=== PATIENT | female | born 1945 | race Caucasian/White ===

== ENCOUNTER 2018-01-19 09:33 | Emergency (ER) | payer MEDICARE ==
[2018-01-19 10:14] LABS: #Basophils 0.1 thou/uL (0.0-0.2); #Eosinphils 0.2 thou/uL (0.0-0.7); #Lymphocytes 2.8 thou/uL (1.20-3.40); #Monocytes 0.8 thou/uL (0.11-0.59); #Neutrophils 5.7 thou/uL (1.40-6.50); %Basophils 0.9 % (0.0-1.0); %Eosinophils 2.1 % (0.0-10.0); %Lymphocytes 29.1 % (21.0-51.0); %Monocytes 8.1 % (0.0-10.0); %Neutrophils 59.8 % (42.0-75.0); Hemoglobin 10.5 g/dL (12.0-16.0); Mean Corpuscular HGB CONC 32.9 g/dL (32.0-36.0); Mean Corpuscular Hemoglobin 31.1 pg (27.0-31.0); Mean Corpuscular Volume 94.5 fl (81.0-99.0); Mean Platelet Volume 7.5 fL (7.4-10.4); Platelet Count 295 thou/uL (130-400); RBC Distribution Width 12.4 % (11.5-14.5); Red Blood Cell (RBC) Count 3.38 mill/uL (4.20-5.40); White Blood Cell (WBC) Count 9.5 thou/uL (4.8-10.8)
[2018-01-19 10:29] LABS: ALT (SGPT) 16 U/L (8-55); AST (SGOT) 22 U/L (5-34); Albumin 4.1 g/dL (3.4-4.8); Alkaline Phosphatase 88 U/L (40-150); Anion Gap 13 mmol/L (10-20); BUN (Urea Nitrogen) 30 mg/dL (9.8-20.1); Bilirubin, Total 0.4 mg/dL (0.2-1.2); CK (CPK) 107 U/L (29-168); Calc. Creatinine Clearance 0 mL/min (70-130); Calcium 9.3 mg/dL (7.8-10.44); Carbon Dioxide 21 mmol/L (23-31); Chloride 110 mmol/L (98-107); Estimated GFR-MDRD 29; Glucose 158 mg/dL (80-115); Potassium 4.9 mmol/L (3.5-5.1); Protein, Total 7.1 g/dL (6.0-8.3); Sodium 139 mmol/L (136-145)
[2018-01-19 10:34] LABS: CKMB 1.8 ng/mL (0-6.6); Troponin I Less than 0.010 ng/mL (< 0.028)
[2018-01-19] MEDS ORDERED: Acetaminophen 325 MG TAB ONE (10:35)
[2018-01-19] MEDS ORDERED: Lorazepam 2 MG/ML VIAL ONE (11:14)
--- NOTE | 2018-01-19 11:22 | RAD ---
PORTABLE AP CHEST XRAY: DATE: 01/19/18. HISTORY: Dyspnea. Right leg pain with pain radiating down buttocks into the right leg. COMPARISON: 06/21/16. FINDINGS: Cardiac silhouette is magnified by projection. Pulmonary vasculature is within normal limits. There is a stable area of linear scarring within the right mid lung zone. There is minimal linear atelecta sis of the left lung base. The lungs are otherwise clear. Bon Wier screws again overlie the humeral h dalia bilaterally. Remote right clavicle fracture is seen. No other interval change. IMPRESSION: No acute cardiopulmonary process. POS: [facility] [place]
[2018-01-19] MEDS ORDERED: Fentanyl 100 MCG/2 ML VIAL SLOW IVP SCH (11:30)
[2018-01-19] MEDS ORDERED: Fentanyl 100 MCG/2 ML VIAL ONE (11:42)
[2018-01-19] MEDS ORDERED: ISOVUE-370 76%-LOCM 1 ML ONE (13:25)
--- NOTE | 2018-01-19 13:40 | CT ---
CT ANGIOGRAM THORAX WITH IV CONTRAST AND 3D RECONSTRUCTIONS: DATE: 01/19/18. HISTORY: Elevated D-dimer. The patient has had right lower extremity pain for the last week. The patient als o reports dyspnea and shortness of breath after walking across the street. Nausea. Questionable his tory of prior DVT. FINDINGS: No filling defects are seen in the pulmonary arteries to suggest a pulmonary embolus. Prominent vascular calcifications are seen in the coronary arteries as well as involving of the thora cic aorta. The thoracic aorta is normal in caliber without evidence of an aortic dissection. There is dependent atelectatic bilaterally. No discrete pulmonary nodule or mass is seen, and no ple ural effusion is identified. There is no evidence of lymphadenopathy. Post cholecystectomy changes are seen in the visualized upper abdomen. Subcentimeter too small to ch aracterize hypodense lesion is seen in the superior pole left kidney. Osseous structures are intact. There is evidence of remote right clavicle fracture with anchor screw s overlying each humeral head, and there is partial visualization of postsurgical changes related to posterior fusion of the lumbar spine noted on the manager pe image. IMPRESSION: 1. No CT evidence of a pulmonary embolus. 2. Prominent atherosclerotic vascular calcifications. 3. Post-cholecystectomy changes. 4. Subcentimeter too small to characterize hypodense lesion superior pole left kidney. POS: [facility]
== END 2018-01-19 13:30 | disposition home or self-care (01) ==
LOC: ERS 09:33
DX: M54.31 Sciatica, right side (principal); R06.00 Dyspnea, unspecified; I25.10 Atherosclerotic heart disease of native coronary artery without angina pectoris; E03.9 Hypothyroidism, unspecified; E78.5 Hyperlipidemia, unspecified; I10 Essential (primary) hypertension; J44.9 Chronic obstructive pulmonary disease, unspecified; Z87.891 Personal history of nicotine dependence; Z79.899 Other long term (current) drug therapy
CPT/HCPCS: 36415; 71045; 71275; 80053; 82550; 82553; 83880; 84484; 85025; 85379; 93005; 96361; 96374; 96375; J2060; J3010

== ENCOUNTER 2018-02-05 17:38 | Observation (INO) | payer MEDICARE ==
[2018-02-05 18:19] LABS: #Eosinphils 0.1 thou/uL (0.0-0.7); #Monocytes 1.5 thou/uL (0.11-0.59); #Neutrophils 10.8 thou/uL (1.40-6.50); %Basophils 0.2 % (0.0-1.0); %Eosinophils 0.5 % (0.0-10.0); %Lymphocytes 24.4 % (21.0-51.0); %Neutrophils 65.9 % (42.0-75.0); Hemoglobin 9.7 g/dL (12.0-16.0); Mean Corpuscular HGB CONC 32.8 g/dL (32.0-36.0); Mean Corpuscular Volume 94.5 fl (81.0-99.0); Mean Platelet Volume 7.3 fL (7.4-10.4); Platelet Count 234 thou/uL (130-400); RBC Distribution Width 12.9 % (11.5-14.5); Red Blood Cell (RBC) Count 3.14 mill/uL (4.20-5.40); White Blood Cell (WBC) Count 16.4 thou/uL (4.8-10.8)
[2018-02-05 18:40] LABS: ALT (SGPT) 32 U/L (8-55); AST (SGOT) 23 U/L (5-34); Albumin 3.8 g/dL (3.4-4.8); Alkaline Phosphatase 72 U/L (40-150); Anion Gap 11 mmol/L (10-20); BUN (Urea Nitrogen) 47 mg/dL (9.8-20.1); Bilirubin, Total 0.3 mg/dL (0.2-1.2); Calc. Creatinine Clearance 0 mL/min (70-130); Calcium 9.1 mg/dL (7.8-10.44); Carbon Dioxide 24 mmol/L (23-31); Chloride 109 mmol/L (98-107); Estimated GFR-MDRD 40; Globulin 2.7 g/dL (2.4-3.5); Glucose 163 mg/dL (80-115); Potassium 4.9 mmol/L (3.5-5.1); Protein, Total 6.5 g/dL (6.0-8.3); Sodium 139 mmol/L (136-145)
--- NOTE | 2018-02-05 19:33 | RAD ---
FOUR VIEWS OF THE RIGHT KNEE 02/05/18 COMPARISON: None. HISTORY: Right knee pain after fall. FINDINGS: Four views of the right knee shows no evidence of acute fracture or dislocation. No knee effusion is seen. No degenerative changes are present. IMPRESSION: Unremarkable exam. POS: [facility]
[2018-02-05 19:37] LABS: CKMB 2.9 ng/mL (0-6.6); Troponin I Less than 0.010 ng/mL (< 0.028)
--- NOTE | 2018-02-05 20:06 | CT ---
CT OF THE FACE WITHOUT CONTRAST 02/05/18 COMPARISON: None. HISTORY: Multiple falling episodes. Memory loss. Facial trauma. TECHNIQUE: Multiple contiguous axial images are obtained in a CT of the face without contrast. Sagittal and jorge nal reformats were performed. FINDINGS: The patient is edentulous. The mandible is unremarkable. The temporomandibular joints are symmetric. No facial fractures are appreciated. The globes and retrobulbar soft tissues are unremarkable. No foc al facial soft tissue swelling is seen. There is a small amount of fluid in the left sphenoid sinus. The other paranasal sinuses are well aer ated. The patient has had prior right mastoid surgery. IMPRESSION: No evidence of facial fracture. POS: [facility]
[2018-02-05] MEDS ORDERED: Adacel (T-DAP) 0.5 ML VIAL ONE (20:22)
--- NOTE | 2018-02-05 20:32 | RAD ---
SINGLE VIEW OF THE CHEST 02/05/18 COMPARISON: 01/19/18 HISTORY: Recent falls with chest trauma. FINDINGS: Single view of the chest shows a normal sized cardiomediastinal silhouette with atherosclerotic calci fications in the aorta. There is no evidence of consolidation, mass or pleural effusion. Bone anchors are seen in the right humerus from prior right shoulder surgery. IMPRESSION: No evidence of acute cardiopulmonary disease. POS: [facility]
--- NOTE | 2018-02-05 20:36 | RAD ---
THREE VIEWS OF THE RIGHT SHOULDER: 02/05/18 COMPARISON: None. HISTORY: Right shoulder pain after falling multiple times. FINDINGS: Three views of the right shoulder shows no evidence of acute fracture or dislocation. Bone anchors ar e seen in the right humerus from prior right shoulder surgery. There is a moderate osteophyte in the glenohumeral joint. IMPRESSION: Moderate right shoulder osteoarthritis without acute osseous abnormality. POS: [facility]
--- NOTE | 2018-02-05 20:43 | CT ---
CT OF THE BRAIN WITHOUT CONTRAST 02/05/18 COMPARISON: None. HISTORY: Altered mental status and multiple falls. COMPARISON: 06/21/16 TECHNIQUE: Multiple contiguous axial images were obtained in a CT of the brain without contrast. FINDINGS: There are a few scattered hypodensities in the subcortical and periventricular white matter, likely s econdary to small vessel ischemic disease. No large confluent infarction is seen. There is no evidenc e of hydrocephalus, intracranial hemorrhage, or extra-axial fluid collections. The calvarium and overlying soft tissues are unremarkable. The visualized paranasal sinuses are well aerated. The patient has had prior right mastoid surgery. IMPRESSION: No evidence of acute intracranial abnormality. POS: [facility]
--- NOTE | 2018-02-05 20:45 | RAD ---
THREE VIEWS OF THE RIGHT FOOT 02/05/18 COMPARISON: None. HISTORY: Recent falls with right foot pain. FINDINGS: Three views of the right foot shows irregularity of the proximal phalanx of the fourth toe which coul d represent an acute or chronic fracture. No other fracture or dislocation are seen. No soft tissue s welling is seen. Mild degenerative changes are seen in the mid foot. IMPRESSION: Possible remote versus acute fracture of the proximal phalanx of the fourth toe. Correlate with point tenderness in this location. POS: [facility]
--- NOTE | 2018-02-05 20:48 | CT ---
CT OF THE CERVICAL SPINE WITHOUT CONTRAST 02/05/18 COMPARISON: None. HISTORY: Multiple falls with neck pain. TECHNIQUE: Multiple contiguous axial images were obtained in a CT of the cervical spine without contrast. Sagitt al and coronal reformats were performed. FINDINGS: There are moderate degenerative changes throughout the cervical spine. the vertebral bodies demonstra te normal height and alignment without acute fracture or subluxation. No prevertebral soft tissue swe lling is seen. The posterior facets are well aligned. Normal alignment of the skull base with the cervical spine is seen. IMPRESSION: Degenerative changes of the cervical spine without acute osseous abnormality. POS: [facility]
[2018-02-05 21:09] LABS: Bilirubin Negative (Negative); Blood, Urine Small (Negative); Clarity CLEAR (Clear); Glucose, Urine (Dipstick) Negative (Negative); Leukocyte Small (Negative); Nitrite Negative (Negative); Protein, Urine (Dipstick) Trace mg/dL (Neg-Trace); Specific Gravity, Urine 1.018 (1.002-1.036); Urobilinogen 0.2 mg/dL (0.2-1.0)
[2018-02-05 21:11] LABS: Bacteria/HPF None Seen HPF (None Seen); Hyaline Casts/LPF 0-3 HYALINE CAST LPF (0-3 Hyaline); Pathc Cast-AUWi Flag 0.29 (0-2.49); Squamous Epithelial None Seen HPF (0-3); WBC/HPF 0-3 HPF (0-3)
[2018-02-05] MEDS ORDERED: Acetaminophen 500 MG TAB ONE (21:22)
[2018-02-05] MEDS ORDERED: Ketorolac Tromethamine 30 MG/ML VIAL ONE (22:17)
[2018-02-05 22:55] LABS: Troponin I Less than 0.010 ng/mL (< 0.028)
[2018-02-05] MEDS ORDERED: Acetaminophen 325 MG TAB PO PRN (23:59)
[2018-02-05] MEDS ORDERED: Ondansetron HCl/PF 4 MG/2 ML Vial IVP PRN (23:59)
[2018-02-05] MEDS ORDERED: Ondansetron ODT 4 MG TAB SL PRN (23:59)
[2018-02-06 00:08] VITALS: BMI 31.6
[2018-02-06 01:46] LABS: Troponin I Less than 0.010 ng/mL (< 0.028)
[2018-02-06] MEDS ORDERED: HYDROcodone/Acetaminophen 10/325 mg Tablet PO PRN (02:06)
[2018-02-06] MEDS: Sodium Chloride 0.9% 1,000 ML IV SCH (10:33)
--- NOTE | 2018-02-06 11:48 | HP ---
DATE OF ADMISSION: 02/06/2018 CHIEF COMPLAINT: Falls. HISTORY OF PRESENT ILLNESS: This is a 72-year-old white female. She lives on her own independently, has a home health through [employer]. She has been falling frequently for the past couple of months. The last fall was a month ago where she had a rotator cuff injury and was seen by Orthopedics and joann daisy is on a shoulder splint at this time. She is seen in the room along with her neighbors who ar e friends who came to visit her. Patient had bruises on the left eye and also multiple bruises on th e lower extremities and has right shoe splint. She denies having any chest pain, no nausea, no vomit ing. Denies having any dizziness. She does not remember the way she fell yesterday. She said she w as seen by [facility] nurse who came to visit her and she advised the patient to go to the ER as she n oticed that the patient has been falling frequently. When patient presented to the ER, she had multi ple x-rays of the knee, x-ray of the hand, x-ray of the shoulder, x-ray of the cervical neck, CT of t he head, everything was unremarkable except for the x-ray of the right foot showing an evidence of pr oximal phalanx of the fourth toe, also had remote fracture, but nondisplaced. Patient denies having any diarrhea or constipation. She is on Lasix at home and she is found to be dehydrated at this time . She does have a history of left carotid artery surgery in the past and she did not follow up with her Cardiology or her PCP recently. PAST MEDICAL HISTORY: Hypothyroidism, peripheral vascular disease, coronary artery disease, hypercho lesterolemia, hypertension, peptic ulcer disease, and cerebrovascular disease. PAST SURGICAL HISTORY: Has a right rotator cuff repair, spinal surgery in the past, hysterectomy, le ft carotid endarterectomy and stent placement to her left common iliac. ALLERGIES: PENICILLIN. SOCIAL HISTORY: Patient is not a nonsmoker. No history of alcohol, no history of illicit drug use. She lives independently. FAMILY HISTORY: No significant family history of coronary artery disease. Family history has been r kianaweosmany. ALLERGIES: PENICILLIN. HOME MEDICATIONS: 1. Cider vinegar 600 mg capsule, takes 1 tablet p.o. b.i.d. 2. Hydrocodone 1 tablet p.o. b.i.d. 3. Tylenol PM, she takes 2 tablets p.o. at bedtime. 4. Lasix 20 mg p.o. at bedtime. 5. Atorvastatin 20 mg p.o. daily. 6. Biotin. 7. Calcium carbonate. 8. Levothyroxine 112 mcg p.o. daily. 9. Losartan 100 mg p.o. daily. 10. Potassium 10 mEq p.o. daily. REVIEW OF SYSTEMS: All other systems are reviewed with the patient thoroughly and found to be negati ve. The following complete review of systems was negative, unless otherwise mentioned in the HPI or below: Constitutional: Weight loss or gain, sense of well-being, ability to conduct usual activities, exerc ise tolerance. Skin/Breast: Rash, itching, changes in hair growth or loss, nail changes, breast lumps, tenderness, swelling, nipple discharge. Eyes: Vision, double vision, tearing, blind spots, pain. ENT/Mouth: Headaches (location, time of onset, duration, precipitating factors), vertigo, lightheadedness, injury. Vision, double vision, tearing, blind spots, pain, nose b leeding, colds, obstruction, discharge, dental difficulties, gingival bleeding, dentures, neck stiffn ess, pain, tenderness, masses in thyroid or other areas Cardiovascular: Precordial pain, substernal distress, palpitations, syncope, dyspnea on exertion, or thopnea, nocturnal paroxysmal dyspnea, edema, cyanosis, hypertension, heart murmurs, varicosities, ph lebitis, claudication. Respiratory: Pain, shortness of breath, wheezing, stridor, cough, hemoptysis, fever or night sweats Gastrointestinal: Poor appetite, dysphagia, indigestion, abdominal pain, heartburn, eructation, naus ea, vomiting, hematemesis, jaundice, constipation, or diarrhea, abnormal stools (roger-colored, tarry, bloody, greasy, foul smelling), flatulence, hemorrhoids, recent changes in bowel habits. Genitourinary: Urgency, frequency, dysuria, nocturia, hematuria, polyuria, oliguria, unusual (or titus nge in) color of urine, stones, hesitancy, change in size of stream, dribbling, acute retention or in continence, libido, potency. Musculoskeletal: Pain, swelling, redness or heat of muscles or joints, limitation, of motion, muscular weakness, atrophy, cramps. Neurologic/Psychiatric: Convulsions, paralyses, tremor, incoordination, parasthesias, difficulties w ith memory of speech, sensory or motor disturbances, or muscular coordination (ataxia, tremor), emoti onal problems, anxiety, depression, previous psychiatric care, unusual perceptions, hallucinations. Allergy/Immunologic: Skin rash, anemia, bleeding tendency, polydipsia, polyuria, intolerance to heat or cold. PHYSICAL EXAMINATION: VITAL SIGNS: Blood pressure 140/96, heart rate is 68, respiratory rate is 18, saturation 98% on room air. GENERAL: The patient is moderately built and moderately nourished. She does not appear to be in acu te distress at this time. She is alert and oriented x3. HEENT: Trauma to the left side of the eye with the bruise noted periorbitally. Vision is normal. V isual acuity is normal. Extraocular movements are normal. Oral mucosa is pink and moist. CARDIOVASCULAR: S1, S2 normal. No murmurs, rubs or gallops. NECK: No thyromegaly. No cervical tenderness. No lymphadenopathy was noted. LUNGS: Bilateral air entry was equal. No wheezing, no crackles. ABDOMEN: Soft, nontender, no guarding, no rebound tenderness. Bowel sounds normal. MUSCULOSKELETAL: The patient has right lower extremity bruises on the lal of the tibia and right fo ot splint is noted. EXTREMITIES: No calf tenderness. No joint tenderness, no joint swelling. SKIN: No erythema, bruising, but noted as explained above. PSYCHIATRIC: No signs of suicidal ideations. No signs of kwesi. LABORATORY DATA: WBC 16.4, hemoglobin is 9.7, hematocrit is 29.7, platelets are 234, neutrophils 10. 8. Sodium is 139, potassium 4.9, chloride is 109. Blood sugar is 163. Lactic acid 1.5. Her tropon ins were normal. ASSESSMENT: 1. Acute syncope. 2. Acute leukocytosis. 3. Moderate to severe dehydration. 4. Acute on chronic kidney disease. 5. History of cerebrovascular disease. 6. Right fourth toe proximal phalanx fracture. 7. Anemia of chronic disease. PLAN: 1. Plan is to closely monitor this patient. We will do a thorough evaluation of her syncope. The p atient has been falling frequently. She is on Lasix which does cause dehydration which is evident ba sed on the labs at this time. We will hold off on the Lasix. 2. We will do a carotid artery evaluation. The left carotid artery had endarterectomy more than 2 y ears ago. Need to look for any evidence of plaque formation or any stenosis. We will do a 2D echo t o look for any evidence of cardiogenic reasons for the falls. 3. History of hypertension. We will continue the patient on home medications. The patient is on lo sartan and Lasix. We will hold the Lasix as described above. 4. As patient has evidence of elevated white count, no source of infection was noted and UA was norm al. Chest x-ray has no pneumonia, no signs of any cellulitis on the skin. We will closely monitor. Most likely this could be part of the dehydration. Lactic acid was normal, so no signs of infection at this time. I would not start any antibiotics. 5. We will do a PT and OT evaluation to see if the patient would qualify for inpatient rehab because of the multiple falls. 6. As patient has anemia, no evidence of any overt bleeding or GI bleeding was noted. We will check stool sample for any occult blood. 7. Deep venous thrombosis prophylaxis, Lovenox. I spent 75 minutes with this patient.
--- NOTE | 2018-02-06 12:52 | ULT ---
BILATERAL CAROTID DUPLEX ULTRASOUND INCLUDING COLOR AND SPECTRAL DOPPLER IMAGING: HISTORY: A 72-year-old female with a history of syncope and dizziness. Visual plaque noted in proximal ICAs bilaterally. PSV right ICA 96 cm/s, EDV 17 cm/s, ICA/CCA ratio 1.1. PSV left ICA 161 cm/s, EDV 45 cm/s, SALMA/CCA ratio 1.6. Vertebral flow is antegrade. IMPRESSION: Moderate (50-69%) stenosis of the right internal carotid artery. Bilateral proximal internal carotid artery visualized plaque, evidence for atherosclerotic carotid artery vascular disease. POS: [facility]
[2018-02-06] MEDS: HYDROcodone/Acetaminophen 10/325 mg Tablet PO PRN ×2 (13:12→21:24)
--- NOTE | 2018-02-06 19:22 | RAD ---
TWO VIEWS OF THE LEFT FOOT: 02/06/18 COMPARISON: None. HISTORY: Left foot pain. FINDINGS: Two views of the left foot shows a spiral fracture or the proximal phalanx of the second toe. No othe r fractures are seen. Lucency in the distal aspect of the proximal phalanx of the great toe likely re presents degenerative change. IMPRESSION: Acute fracture of the proximal phalanx of the second toe. POS: [facility]
[2018-02-06] MEDS ORDERED: [UNRECOGNIZED DRUG - OTHER] PO SCH (21:00)
[2018-02-06] MEDS ORDERED: Atorvastatin Calcium 20 MG TAB PO SCH (21:00)
[2018-02-06] MEDS ORDERED: Famotidine 20 MG TAB PO SCH ×2 (21:00)
[2018-02-06] MEDS ORDERED: CALCIUM CARBONATE PO SCH (21:00)
[2018-02-06] MEDS ORDERED: VITAMIN D3 PO SCH (21:00)
[2018-02-06] MEDS ORDERED: Calcium Carbonate + Vit D 1 TAB PO SCH (21:00)
[2018-02-06] MEDS: Docusate 100 MG CAP PO SCH (21:24)
[2018-02-07] MEDS: HYDROcodone/Acetaminophen 10/325 mg Tablet PO PRN ×2 (03:06→11:04)
[2018-02-07] MEDS: Sodium Chloride 0.9% 1,000 ML IV SCH ×2 (03:09→17:03)
[2018-02-07 04:50] LABS: #Eosinphils 0.1 thou/uL (0.0-0.7); #Lymphocytes 2.3 thou/uL (1.20-3.40); #Neutrophils 6.5 thou/uL (1.40-6.50); %Basophils 0.2 % (0.0-1.0); %Eosinophils 1.2 % (0.0-10.0); %Lymphocytes 23.1 % (21.0-51.0); %Monocytes 9.9 % (0.0-10.0); %Neutrophils 65.6 % (42.0-75.0); Hemoglobin 9.5 g/dL (12.0-16.0); Mean Corpuscular HGB CONC 32.6 g/dL (32.0-36.0); Mean Corpuscular Hemoglobin 30.7 pg (27.0-31.0); Mean Corpuscular Volume 94.3 fl (81.0-99.0); Mean Platelet Volume 7.4 fL (7.4-10.4); Platelet Count 202 thou/uL (130-400); RBC Distribution Width 12.8 % (11.5-14.5); Red Blood Cell (RBC) Count 3.08 mill/uL (4.20-5.40); White Blood Cell (WBC) Count 9.9 thou/uL (4.8-10.8)
[2018-02-07 05:00] LABS: Anion Gap 10 mmol/L (10-20); BUN (Urea Nitrogen) 40 mg/dL (9.8-20.1); Calc. Creatinine Clearance 59 mL/min (70-130); Calcium 9.1 mg/dL (7.8-10.44); Carbon Dioxide 25 mmol/L (23-31); Chloride 110 mmol/L (98-107); Estimated GFR-MDRD 48; Glucose 121 mg/dL (80-115); Potassium 5.2 mmol/L (3.5-5.1); Sodium 140 mmol/L (136-145)
[2018-02-07] MEDS ORDERED: Levothyroxine Sodium 112 MCG TAB PO SCH (06:00)
[2018-02-07] MEDS ORDERED: Enoxaparin Sodium 40 MG/0.4 ML SYRINGE SC SCH (09:00)
[2018-02-07] MEDS ORDERED: Potassium Chloride 10 MEQ TAB PO SCH (09:00)
[2018-02-07] MEDS ORDERED: Non-Formulary Item 1 EACH (Losartan Potassium [Losartan Potassium] 100 MG) PO SCH (09:00)
[2018-02-07] MEDS ORDERED: Non-Formulary Item 1 EACH (Biotin [Biotin] 5,000 MCG) PO SCH (09:00)
[2018-02-07] MEDS ORDERED: Non-Formulary Item 1 EACH (Cholecalciferol (Vitamin D3) [Vitamin D3] 5,000 UNIT) PO SCH (09:00)
[2018-02-07] MEDS ORDERED: Losartan 25 MG TAB PO SCH (09:00)
[2018-02-07] MEDS: Docusate 100 MG CAP PO SCH (09:10)
[2018-02-07 10:55] LABS: Cardiac Risk 3.7 (Less than 4.5)
--- NOTE | 2018-02-07 13:01 | CON ---
DATE OF CONSULTATION: 02/07/2018 HISTORY OF PRESENT ILLNESS: This is a 72-year-old female with several falls in the last month by her account. She states that she is uncertain as to the cause, does not know if she is passing out or t ripping. In any event, workup has included EKG suggesting an inferior DC and possible left ventricul ar hypertrophy. She had a carotid ultrasound demonstrating a 50%-69% left internal carotid artery st enosis. Otherwise, no source for her passing or tripping or falling spells has been elucidated. PAST MEDICAL HISTORY: Includes hypertension, dyslipidemia, and hypothyroidism. She is generally fol lowed by Dr. Yessi Caceres for these problems. PAST SURGICAL HISTORY: Includes a left carotid endarterectomy, previous stent in her left common saba ac, previous hysterectomy and rotator cuff repair. She has had 2 back surgeries and a cholecystectom y. SOCIAL HISTORY: She was a smoker in the past, but not presently. She lives at home alone. MEDICATIONS: Losartan, levothyroxine, atorvastatin, Lasix, hydrocodone. ALLERGIES: PENICILLIN. PHYSICAL EXAMINATION: GENERAL: Alert, cooperative, somewhat disheveled lady, very pleasant. NECK: Healed scar on the left with no bruits. LUNGS: Clear to auscultation. CARDIAC: Occasional ectopic beat with a very soft systolic murmur. ABDOMEN: Soft, nontender. EXTREMITIES: She has palpable pedal pulse in both feet with an IV in her left foot and palpable radi al artery pulses. PLAN: Plan at this time, no further evaluation needs to be undertaken in regards to her carotid francia ry disease and I will follow her up as an outpatient. There may be some reason to consider an echoca rdiogram given her syncopal episodes as I cannot see that one has been done in the recent past.
[2018-02-07 15:36] VITALS: BP 135/68; TEMP 97.9
[2018-02-07] MEDS ORDERED: Famotidine 20 MG TAB PO SCH (21:00)
--- NOTE | 2018-02-08 16:14 | DIS ---
DATE OF ADMISSION: 02/06/2018 DATE OF DISCHARGE: 02/07/2018 ADMITTING DIAGNOSIS: Acute syncope. DISCHARGE DIAGNOSIS: Acute syncope secondary to severe dehydration. SECONDARY DIAGNOSES: 1. Acute kidney injury. 2. Right carotid artery stenosis with 50-69% blockage. 3. Multiple fractures of the right foot with the fourth phalanx fracture on the left with a second p halanx fracture. HISTORY OF PRESENT ILLNESS AND HOSPITAL COURSE: In brief, this is a 72-year-old white female living independently and has been falling very frequently for the past for the past 1 month and she has a ro tator cuff injury on the right shoulder and she is on the splint while in the hospital. It was noted that the patient has been severely dehydrated and was started on IV fluids with normal saline. Melissa ent showed good improvement in her renal function after the IV fluids were given and she was on Lasix and lisinopril. Both of them were held because she also had elevated potassium. The patient is euv olemic and heart functions were good. She would not need a Lasix at this time, I would discontinue t his completely and will hold off on the lisinopril until she sees her primary care physician. We estrella l start patient on amlodipine 10 mg. Patient did fine with the blood pressures were stable and x-ray s of the foot showed fractures as stated above and the patient was given a boot and advised to wear a nd the patient had a PT and OT done which proved the patient was a high risk for falls and she had an inpatient rehabilitation consultation and the patient is discharged to inpatient rehabilitation. Patient had a carotid Doppler during this admission which did show above findings with the right tian tid artery stenosis of 55-69% and Dr. Armas was consulted who suggested no treatment at this time and advised to continue on the medical management. PHYSICAL EXAMINATION: On the day of discharge, VITAL SIGNS: Blood pressures were 165/73, heart rate is 89, respiratory rate 18, saturation 98%. GENERAL: The patient is moderately built and moderately nourished, does not appear to be in acute di stress at this time. Alert and oriented x3. HEENT: Atraumatic, normocephalic. PERRLA. Extraocular muscles were intact. Oral mucosa is pink an d moist. CARDIOVASCULAR: S1, S2 normal. No murmurs, rubs or gallops. LUNGS: Bilateral air entry was equal. No wheezing or crackles. ABDOMEN: Soft, nontender. No guarding or rebound tenderness. DISCHARGE MEDICATIONS: Home medications, 1. Atorvastatin 20 mg p.o. daily. 2. Biotin 5000 mcg p.o. daily. 3. Calcium. 4. Hydrocodone. 5. Levothyroxine. NEW MEDICATIONS: Amlodipine 10 mg p.o. daily. DISCHARGE INSTRUCTIONS: 1. Continue activity as suggested at the inpatient rehabilitation. Advised to continue with cardiac diet. 2. Continue to hydrate the patient. I spent 35 minutes with this patient.
== END 2018-02-07 19:24 | disposition home or self-care (01) ==
LOC: ERS 17:38 → 2SW 22:03
PROVIDERS: ADMIT Internal Medicine; ATTEND Internal Medicine
DX: E86.0 Dehydration (principal); R55 Syncope and collapse; I12.9 Hypertensive chronic kidney disease with stage 1 through stage 4 chronic kidney disease, or unspecified chronic kidney disease; N18.9 Chronic kidney disease, unspecified; N17.9 Acute kidney failure, unspecified; D63.1 Anemia in chronic kidney disease; I65.21 Occlusion and stenosis of right carotid artery; S92.511A Displaced fracture of proximal phalanx of right lesser toe(s), initial encounter for closed fracture; S92.502A Displaced unspecified fracture of left lesser toe(s), initial encounter for closed fracture; E03.9 Hypothyroidism, unspecified; I73.9 Peripheral vascular disease, unspecified; I25.10 Atherosclerotic heart disease of native coronary artery without angina pectoris; E78.00 Pure hypercholesterolemia, unspecified; D72.829 Elevated white blood cell count, unspecified; Z87.891 Personal history of nicotine dependence; Z91.81 History of falling; Z88.0 Allergy status to penicillin; Z79.899 Other long term (current) drug therapy; Z98.890 Other specified postprocedural states
CPT/HCPCS: 70450; 70486; 71045; 72125; 73030; 73564; 73620; 73630; 80048; 80061; 82553; 83605; 83735; 83880; 84484 ×3; 85025; 90471; 90715; 93005; 93880; 94760; 96361 ×2; 96372; 96374; 97116 ×2; 97139 ×2; 97530; 97535; 99285; G0378; G8978; G8979; G8987; G8988; 36415; 80053; 81003; 81015; 84443; A4216; J1650; J1885

== ENCOUNTER 2018-05-09 11:29 | Outpatient (CLI) | payer MEDICARE | END 2018-05-09 11:30 | disposition home or self-care (01) | LOC: BICRAD 11:29 | PROVIDERS: ATTEND Internal Medicine Rheumatology | DX: M25.552 Pain in left hip (principal); M79.672 Pain in left foot; S92.912 Unspecified fracture of left toe(s) ==

== ENCOUNTER 2018-05-29 15:41 | Emergency (ER) | payer MEDICARE ==
--- NOTE | 2018-05-29 18:15 | RAD ---
AP VIEW CHEST SUPINE AND UPRIGHT VIEWS OF THE ABDOMEN 05/29/18 History: abdominal pain Comparison made to previous exam from 07/23/07. AP view chest demonstrates rotator cuff surgical hardware in both shoulders. Atherosclerotic calcification of the thoracic aorta seen. Mild cardiomegaly and mild pulmonary vascul ar congestion seen. No evidence of effusion seen. Supine and upright views of the abdomen demonstrate surgical clips seen in the gallbladder fossa. Surgical hardware seen involving the L4, L5 and S1 vertebrae. Bilateral extensive soft tissue calcifications seen in the region of the gluteal muscles and adjacent fat. No evidence of bowel obstruction or ileus seen. No dilated loops of bowel seen. No evidence of free i ntraperitoneal air seen. IMPRESSION: Surgical changes. No significant evidence of acute intrathoracic abnormality seen. POS: [facility]
[2018-05-29 18:36] LABS: Bilirubin Negative (Negative); Blood, Urine Moderate (Negative); Clarity CLOUDY (Clear); Glucose, Urine (Dipstick) Negative (Negative); Leukocyte Large (Negative); Nitrite Negative (Negative); Protein, Urine (Dipstick) Trace mg/dL (Neg-Trace); Specific Gravity, Urine 1.018 (1.002-1.036); Urobilinogen 0.2 mg/dL (0.2-1.0); pH, Urine 5.5 (5.0-9.0)
[2018-05-29 18:45] LABS: Hyaline Casts/LPF 4-6 HYALINE CAST LPF (0-3 Hyaline); Pathc Cast-AUWi Flag 0.43 (0-2.49); Squamous Epithelial 0-3 HPF (0-3); Yeast-AUWi Flag 111.6 (0-25.0)
[2018-05-29 18:51] LABS: #Basophils 0.1 thou/uL (0.0-0.2); #Eosinphils 0.2 thou/uL (0.0-0.7); #Monocytes 0.8 thou/uL (0.11-0.59); #Neutrophils 4.7 thou/uL (1.40-6.50); %Basophils 0.7 % (0.0-1.0); %Eosinophils 2.5 % (0.0-10.0); %Lymphocytes 34.4 % (21.0-51.0); %Monocytes 8.7 % (0.0-10.0); %Neutrophils 53.7 % (42.0-75.0); Mean Corpuscular HGB CONC 31.4 g/dL (32.0-36.0); Mean Corpuscular Hemoglobin 28.5 pg (27.0-31.0); Mean Platelet Volume 8.5 fL (7.4-10.4); Platelet Count 243 thou/uL (130-400); RBC Distribution Width 14.6 % (11.5-14.5); Red Blood Cell (RBC) Count 3.51 mill/uL (4.20-5.40); White Blood Cell (WBC) Count 8.8 thou/uL (4.8-10.8)
[2018-05-29 18:53] LABS: Bacteria/HPF 1+ HPF (None Seen); Yeast-All Forms None Seen HPF (None Seen)
[2018-05-29 18:57] LABS: INR-International Normal Ratio 0.9; PTT 28.3 SEC (22.9-36.1); Prothrombin Time 12.6 SEC (12.0-14.7)
[2018-05-29 19:02] LABS: Albumin 3.9 g/dL (3.4-4.8); Calcium 9.1 mg/dL (7.8-10.44); Chloride 114 mmol/L (98-107); Glucose 107 mg/dL (83-110); Sodium 138 mmol/L (136-145)
[2018-05-29 19:03] LABS: Protein, Total 6.9 g/dL (6.0-8.3)
[2018-05-29 19:04] LABS: Anion Gap 13 mmol/L (10-20); Bilirubin, Total 0.2 mg/dL (0.2-1.2); Carbon Dioxide 16 mmol/L (23-31)
[2018-05-29 19:06] LABS: Calc. Creatinine Clearance 0 mL/min (70-130); Estimated GFR-MDRD 30
[2018-05-29 19:07] LABS: AST (SGOT) 23 U/L (5-34); BUN (Urea Nitrogen) 35 mg/dL (9.8-20.1)
[2018-05-29 19:08] LABS: ALT (SGPT) 32 U/L (8-55); Iron 32 ug/dL (50-170); Iron Binding Capacity, Total 278 mcg/dL (265-497)
[2018-05-29 19:13] LABS: Alkaline Phosphatase 99 U/L (40-150)
== END 2018-05-29 19:41 | disposition home or self-care (01) ==
LOC: ERS 15:41
DX: K29.70 Gastritis, unspecified, without bleeding (principal); D50.9 Iron deficiency anemia, unspecified; E03.9 Hypothyroidism, unspecified; E78.5 Hyperlipidemia, unspecified; I25.10 Atherosclerotic heart disease of native coronary artery without angina pectoris; I10 Essential (primary) hypertension; J44.9 Chronic obstructive pulmonary disease, unspecified; Z87.891 Personal history of nicotine dependence; Z79.82 Long term (current) use of aspirin; Z79.899 Other long term (current) drug therapy
CPT/HCPCS: 36415; 74022; 80053; 81003; 81015; 82274; 82728; 83540; 83550; 85025; 85610; 85730; 86850; 86900; 86901; 93005

== ENCOUNTER 2018-08-20 12:19 | Outpatient (CLI) | payer MEDICARE ==
--- NOTE | 2018-08-22 14:15 | PFT ---
PATIENT HISTORY: HEIGHT: 61.5 IN WEIGHT: 155 SMOKER: NO HOW LON YRS PACKS PER DAY: 1.5 PRODUCTIVE COUGH: LUNG DISEASE: PHYSICIAN INTERPRETATION FINAL REPORT: Patient had good effort and cooperation. PFT data: FVC 1.70 (63%), FEV1 1.34 (67%) FEV1/FVC 0.76 TLC 4.90 (106%), RV 1.37 (73%) Diffusion 28.19 (137%) There is a symmetric reduction the FEV1 and the FVC. The ratio is suggestive of a restrictive profile. Volume constriction is confirmed with a mildly reduced RV though the TLC is preserved. Diffusion capacity is normal to slightly elevated. IMPRESSION: Overall, These pulmonary function studies are most consistent with mild restrictive process with no significant reversibility, and elevated gas exchange. Clinical and radiographic correlation should be considered. No priors for comparison. 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
== END 2018-08-20 12:20 | disposition home or self-care (01) ==
LOC: CP 12:19
PROVIDERS: ATTEND Internal Medicine Pulmonary Disease
DX: J44.9 Chronic obstructive pulmonary disease, unspecified (principal)
CPT/HCPCS: 94060; 94727; 94729

== ENCOUNTER 2018-09-04 19:54 | Emergency (ER) | payer MEDICARE ==
--- NOTE | 2018-09-04 20:58 | CT ---
CT BRAIN WITHOUT CONTRAST: 09/04/18 COMPARISON: 02/05/18 HISTORY: Left hip pain and stiffness. Fall with laceration in the posterior head; head trauma. TECHNIQUE: Multiple contiguous axial images were obtained in a CT of the brain without contrast. FINDINGS: There are scattered hypodensities in the subcortical and periventricular white matter, likely seconda ry to small vessel ischemic disease. No large confluent infarction is seen. There is no evidence of h ydrocephalus, intracranial hemorrhage or extra-axial fluid collection. The calvarium and overlying soft tissues are unremarkable. There is fluid in the left sphenoid sinus. The other visualized paranasal sinuses are well aerated. Postsurgical changes are seen in the right mastoid air cells. IMPRESSION: No evidence of intracranial abnormality. POS: [facility]
--- NOTE | 2018-09-04 21:08 | RAD ---
TWO VIEWS OF THE LEFT HIP: 09/04/18 COMPARISON: None. HISTORY: Slipped wearing socks with left hip pain. FINDINGS: Two views of the left hip shows no evidence of acute fracture or dislocation. Mild degenerative joseph es are seen in the left hip. Heterotopic ossification is seen in the left gluteal region. Hardware is seen in the lumbar spine. IMPRESSION: No evidence of acute osseous abnormality. POS: [facility]
[2018-09-04] MEDS ORDERED: Lidocaine 1% PF 5 ML VIAL ONE (21:35)
[2018-09-04] MEDS ORDERED: traMADol HCl 50 MG TAB ONE (22:23)
== END 2018-09-04 22:25 | disposition home or self-care (01) ==
LOC: ERS 19:54
DX: S01.01XA Laceration without foreign body of scalp, initial encounter (principal); J44.9 Chronic obstructive pulmonary disease, unspecified; I25.10 Atherosclerotic heart disease of native coronary artery without angina pectoris; I10 Essential (primary) hypertension; M25.552 Pain in left hip; Z79.82 Long term (current) use of aspirin; Z79.899 Other long term (current) drug therapy; Z79.891 Long term (current) use of opiate analgesic; W18.11XA Fall from or off toilet without subsequent striking against object, initial encounter
CPT/HCPCS: 12002; 70450; J2001

== ENCOUNTER 2018-09-24 13:57 | Outpatient (CLI) | payer MEDICARE ==
--- NOTE | 2018-09-24 15:48 | BD ---
Exam: DEXA Bone Density 09/24/18 HISTORY: Postmenopausal. Left Hip: BMD (g/cm2) T-Score: Left femoral neck 0.552 -2.7 Total: 0.775 -1.4 Right femoral neck 0.588 -2.4 Total: 0.693 -2.0 Impression: Osteoporosis of the left hip and osteopenia of the right hip. The right hip measurement is bordering on the osteoporosis range. POS: [facility]
== END 2018-09-24 13:58 | disposition home or self-care (01) ==
LOC: BICMAMMO 13:57
PROVIDERS: ATTEND Internal Medicine Rheumatology
DX: M81.0 Age-related osteoporosis without current pathological fracture (principal); M85.851 Other specified disorders of bone density and structure, right thigh
CPT/HCPCS: 77080

== ENCOUNTER 2018-10-15 13:30 | Outpatient (CLI) | payer MEDICARE ==
--- NOTE | 2018-10-15 14:47 | ULT ---
RENAL ULTRASOUND: HISTORY: Chronic renal failure. TECHNIQUE: Real-time imaging of the right and left kidneys was performed. FINDINGS: The right kidney measures 8.8 and the left kidney 9.1 cm in size. On the left side there is a 1 cm u pper pole left renal cyst, and in the lower pole region, there is a 4.4 x 5.8 cm cyst. There is no o bstruction. The bladder is incompletely distended. IMPRESSION: 1. No evidence of obstruction of either kidney. 2. Left-sided renal cyst. POS: [facility]
== END 2018-10-15 13:31 | disposition home or self-care (01) ==
LOC: BICULT 13:30
PROVIDERS: ATTEND Internal Medicine Nephrology
DX: N17.9 Acute kidney failure, unspecified (principal); N28.1 Cyst of kidney, acquired
CPT/HCPCS: 76770

== ENCOUNTER 2019-04-07 14:46 | Outpatient (CLI) | payer MEDICARE ==
--- NOTE | 2019-04-07 15:33 | RAD ---
PA AND LATERAL CHEST: Date: 04/07/19 HISTORY: COPD. Arthropathic psoriasis. COMPARISON: 01/31/19. FINDINGS: The lateral view is obtained with patient motion which limits adequate evaluation. The cardiac silhou ette is mildly enlarged. The pulmonary vasculature is within normal limits. There is linear scarring versus atelectasis in the right mid lung zone, as well as left upper lung zone. No consolidation or p leural fluid is seen. Vascular calcifications are seen in the thoracic aorta. Multiple anchor screws overlie the right humeral head with a single anchor screw overlying the left humeral head. There are calcifications seen adjacent to the left humerus which may be related to calcific peritendinitis. The re are calcifications also seen just superior to the left acromioclavicular joint. Postsurgical joseph es visualized upper lumbar spine are noted. IMPRESSION: 1. No acute cardiopulmonary process. 2. Mild cardiomegaly without overt CHF. 3. Atelectasis versus scarring in the right mid lung zone, as well as left upper lung zone. POS: LIZ
== END 2019-04-07 14:47 | disposition home or self-care (01) ==
LOC: BICRAD 14:46
PROVIDERS: ATTEND Internal Medicine Rheumatology
DX: L40.50 Arthropathic psoriasis, unspecified (principal); I51.7 Cardiomegaly
CPT/HCPCS: 71046

== ENCOUNTER 2019-08-06 15:55 | Inpatient (IN) | payer MEDICARE ==
--- NOTE | 2019-08-06 16:36 | RAD ---
EXAM: CHEST ONE VIEW HISTORY: Shortness of breath, dyspnea. COMPARISON: 04/07/2019 FINDINGS: Cardiac silhouette is magnified by projection and patient rotation but is overall stable in size when compared to the prior exam. Pulmonary vasculature are within normal limits. Linear densities are again seen in the right midlung zone probably due to mild scarring. Mild eventration of the right hem idiaphragm is present. No consolidation or pleural fluid is appreciated. -Vascular calcifications are again seen in thoracic aorta. Stable postoperative changes are again seen involving each shoulder and visualized upper lumbar spine with surgical clips again seen overlying the right upper quadrant. Prominent right glenohumeral osteoarthropathy is present. Osseous densities are seen adjace nt to the left humeral head which could be related to heterotopic ossification. IMPRESSION: No acute cardiopulmonary process.
[2019-08-06 17:16] LABS: #Eosinphils 0.1 thou/uL (0.0-0.7); #Lymphocytes 4.3 thou/uL (1.20-3.40); #Monocytes 1.2 thou/uL (0.11-0.59); #Neutrophils 5.7 thou/uL (1.40-6.50); %Basophils 0.4 % (0.0-1.0); %Eosinophils 0.7 % (0.0-10.0); %Lymphocytes 37.9 % (21.0-51.0); %Monocytes 10.7 % (0.0-10.0); %Neutrophils 50.3 % (42.0-75.0); Hemoglobin 12.2 g/dL (12.0-16.0); Mean Corpuscular HGB CONC 31.9 g/dL (32.0-36.0); Mean Corpuscular Volume 94.1 fL (78.0-98.0); Mean Platelet Volume 8.2 fL (7.4-10.4); Platelet Count 248 thou/uL (130-400); RBC Distribution Width 12.6 % (11.5-14.5); Red Blood Cell (RBC) Count 4.05 mill/uL (4.20-5.40); White Blood Cell (WBC) Count 11.4 thou/uL (4.8-10.8)
[2019-08-06 17:33] LABS: ALT (SGPT) 21 U/L (8-55); AST (SGOT) 27 U/L (5-34); Albumin 4.2 g/dL (3.4-4.8); Alkaline Phosphatase 71 U/L (40-110); Anion Gap 12 mmol/L (10-20); BUN (Urea Nitrogen) 28 mg/dL (9.8-20.1); Bilirubin, Total 0.3 mg/dL (0.2-1.2); Calc. Creatinine Clearance 0 mL/min (70-130); Calcium 9.8 mg/dL (7.8-10.44); Carbon Dioxide 22 mmol/L (23-31); Chloride 109 mmol/L (98-107); Estimated GFR-MDRD 41; Globulin 2.9 g/dL (2.4-3.5); Glucose 119 mg/dL (83-110); Potassium 4.2 mmol/L (3.5-5.1); Protein, Total 7.1 g/dL (6.0-8.3); Sodium 139 mmol/L (136-145)
[2019-08-06 17:55] LABS: CKMB 4.7 ng/mL (0-6.6)
[2019-08-06] MEDS ORDERED: Aspirin 325 MG TAB ONE (18:06)
[2019-08-06] MEDS ORDERED: Bisacodyl 10 MG SUPP PR PRN (19:07)
[2019-08-06] MEDS ORDERED: Senokot S 8.6-50 MG TAB PO PRN (19:07)
[2019-08-06] MEDS ORDERED: Guaifenesin DM 100-10/5 ML UDCUP PO PRN (19:07)
--- NOTE | 2019-08-06 19:46 | HP ---
REASON FOR ADMISSION: Acute CHF exacerbation, acute COPD exacerbation. HISTORY OF PRESENTING ILLNESS: The patient gives history of having shortness of breath from last 2 to 3 days now. Her [facility] nurse had come, evaluated her yesterday. She was short of breath and she instructed her to go to the emergency room if she felt the same way today. She has been feeling sick to her stomach and threw up nearly 4 times yesterday. She normally has 1 to 2 times of diarrhea due to chronic GI issue, which she does not recollect, but states it is diverticulosis. She lives alone and ambulates with a rolling walker. She has not been able to mobilize herself well at home due to increasing shortness of breath and made it to emergency room. No complaints of chest pain or palpitation. She sees Dr. Robertson. She says she has had a stress test done 2 years back before her back surgery and was normal as far as she knows. PAST MEDICAL AND SURGICAL HISTORY: History of peripheral vascular disease with stent placed into left lower extremity vessels by Dr. Robertson, dyslipidemia, hypertension, COPD, back surgery, history of diverticulosis, cholecystectomy, 2 rotator cuff surgeries, dementia, and hypothyroidism. CURRENT MEDICATIONS: The patient takes; 1. Symbicort inhaler 160/4.5 mcg 2 puffs twice daily. 2. Omeprazole 40 mg p.o. daily. 3. Chlorthalidone 25 mg p.o. daily. 4. Donepezil 5 mg p.o. q.a.m. 5. Carvedilol 3.125 mg twice daily. 6. Aspirin 81 mg p.o. daily. 7. Pravastatin 20 mg p.o. daily. 8. Levothyroxine 112 mcg p.o. daily. 9. Losartan 100 mg p.o. daily. ALLERGIES: NO KNOWN DRUG ALLERGIES. PERSONAL HISTORY: Quit smoking 20 years ago, prior to which has smoked 2-1/2 packs a day for nearly 10 or 15 years. Does not abuse alcohol or drugs. She ambulates with a rolling walker and does all her activities of daily living. She lives alone. FAMILY HISTORY: Both parents are . Has no siblings or children. No inheritable disease per the patient. CODE STATUS: The patient wants to be do not attempt to resuscitation. Her medical power of title attorney is pastor Denton Alexander. The patient states she has had official paperwork done for the same. REVIEW OF SYSTEMS: CONSTITUTIONAL: Negative for weight loss or gain, ability to conduct usual activities. SKIN: Negative for rash, itching. EYES: Negative for double vision, pain. ENT/MOUTH: Negative for nose bleeding, neck stiffness, pain, tenderness. CARDIOVASCULAR: Negative for palpitations, dyspnea on exertion, orthopnea. RESPIRATORY: Negative for shortness of breath, wheezing, cough, hemoptysis, fever or night sweats. GASTROINTESTINAL: Negative for poor appetite, abdominal pain, heartburn, nausea , vomiting, constipation, or diarrhea. GENITOURINARY: Negative for urgency, frequency, dysuria, nocturia. MUSCULOSKELETAL: Negative for pain, swelling. NEUROLOGIC/PSYCHIATRIC: Negative for anxiety, depression. ALLERGY/IMMUNOLOGIC: Negative for skin rash, bleeding tendency. PHYSICAL EXAMINATION: GENERAL: The patient is a 74-year-old female, who is currently not in any acute distress. VITAL SIGNS: Blood pressure 130/76, pulse 88 per minute, respiratory rate 20 per minute, temperature 98.2 degrees Fahrenheit, and saturating 96% on room air. NECK: Supple. No elevated JVD. HEENT: Eyes; extraocular muscles intact. Pupils are reacting to light. Oral cavity, mucous membranes are dry. No exudates or congestion. CARDIOVASCULAR SYSTEM: S1 and S2 heard. Regular rhythm. RESPIRATORY SYSTEM: Air entry 1+ bilateral. Scattered rales in the infrascapular area. Scattered wheezes plus bilateral. ABDOMEN: Soft. Bowel sounds heard. No tenderness, rigidity, or guarding. EXTREMITIES: No peripheral edema or calf tenderness. VASCULAR SYSTEM: Peripheral pulses 1+ bilateral. No ischemic ulcerations or gangrene. CENTRAL NERVOUS SYSTEM: No gross focal deficits noted. The patient is alert, awake, and oriented well. PSYCHIATRIC SYSTEM: The patient's mood is euthymic. No hallucinations or delusions. LABORATORY DATA: White count of 11, H and H 12 and 38, platelet count is 248, MCV is 94 with 50% neutrophils. Serum bicarb 22, BUN 28, creatinine 1.2, and serum glucose 119. Troponin I 0.14, CK-MB 4.7. Liver enzymes within normal limits. Albumin is 4.2. BNP is 305. EKG done shows sinus rhythm at 85 beats per minute. There is poor R-wave progression and signs of LVH seen. Chest x-ray done shows no acute infiltrate. CLINICAL IMPRESSION AND PLAN: The patient will be under observation on telemetry for acute congestive heart failure exacerbation, acute on chronic mild chronic obstructive pulmonary disease exacerbation as well. She will be gently diuresed with Lasix. We will also place her on DuoNeb and Solu-Medrol at 20 mg IV q.8 hourly. We will continue her home medications of aspirin, Lipitor, Coreg, Aricept, levothyroxine, and Cozaar at 50 mg instead of 100 to allow for diuresis. We will obtain influenza A and B antigens and TSH in the morning. We will continue to closely monitor her on telemetry. If the patient's shortness of breath was to not get better by morning, she will be switched over to inpatient status. Job ID: [id number] [facility]
[2019-08-06 20:23] LABS: Troponin I 0.167 ng/mL (< 0.028)
[2019-08-06 20:59] VITALS: BMI 27.7
[2019-08-06] MEDS ORDERED: Famotidine 20 MG TAB PO SCH (21:00)
[2019-08-06] MEDS: diphenhydrAMINE 25 MG CAP PO SCH (21:27)
[2019-08-06] MEDS: Acetaminophen 500 MG TAB PO SCH (21:27)
[2019-08-06] MEDS: Doxycycline 100 MG CAP PO SCH (21:27)
[2019-08-06] MEDS: Carvedilol 3.125 MG TAB PO SCH (21:28)
[2019-08-06] MEDS: Atorvastatin Calcium 20 MG TAB PO SCH (21:28)
[2019-08-06] MEDS: Donepezil HCl 5 MG TAB PO SCH (21:28)
[2019-08-06] MEDS: methylPREDNISolone Sod Succ 40 MG VIAL IVP SCH (21:29)
[2019-08-06 23:50] LABS: Troponin I 0.138 ng/mL (< 0.028)
[2019-08-07 05:00] LABS: #Basophils 0.1 thou/uL (0.0-0.2); #Lymphocytes 1.6 thou/uL (1.20-3.40); #Monocytes 0.2 thou/uL (0.11-0.59); #Neutrophils 5.4 thou/uL (1.40-6.50); %Eosinophils 0.3 % (0.0-10.0); %Lymphocytes 22.1 % (21.0-51.0); %Monocytes 2.9 % (0.0-10.0); %Neutrophils 73.7 % (42.0-75.0); Hemoglobin 11.3 g/dL (12.0-16.0); Mean Corpuscular HGB CONC 32.3 g/dL (32.0-36.0); Mean Corpuscular Hemoglobin 30.1 pg (27.0-31.0); Mean Corpuscular Volume 93.5 fL (78.0-98.0); Mean Platelet Volume 8.9 fL (7.4-10.4); Platelet Count 269 thou/uL (130-400); RBC Distribution Width 12.5 % (11.5-14.5); Red Blood Cell (RBC) Count 3.75 mill/uL (4.20-5.40); White Blood Cell (WBC) Count 7.3 thou/uL (4.8-10.8)
[2019-08-07 05:11] LABS: Anion Gap 14 mmol/L (10-20); BUN (Urea Nitrogen) 31 mg/dL (9.8-20.1); Calc. Creatinine Clearance 43 mL/min (70-130); Calcium 9.5 mg/dL (7.8-10.44); Carbon Dioxide 20 mmol/L (23-31); Chloride 109 mmol/L (98-107); Estimated GFR-MDRD 40; Glucose 155 mg/dL (83-110); Potassium 5.2 mmol/L (3.5-5.1); Sodium 138 mmol/L (136-145)
[2019-08-07] MEDS: Furosemide 40 MG/4 ML VIAL SLOW IVP SCH ×2 (05:20→16:03)
[2019-08-07] MEDS: Levothyroxine Sodium 112 MCG TAB PO SCH (05:20)
[2019-08-07] MEDS: methylPREDNISolone Sod Succ 40 MG VIAL IVP SCH ×3 (05:20→21:23)
[2019-08-07] MEDS: Mometasone/Formoterol 120 PUFF INHALER INH SCH ×2 (07:15→18:41)
[2019-08-07] MEDS: Doxycycline 100 MG CAP PO SCH ×2 (08:54→20:05)
[2019-08-07] MEDS: Carvedilol 3.125 MG TAB PO SCH ×2 (08:54→20:05)
[2019-08-07] MEDS: Aspirin Chewable 81 MG TAB PO SCH (08:54)
[2019-08-07] MEDS ORDERED: Losartan 25 MG TAB PO SCH (09:00)
[2019-08-07] MEDS ORDERED: Enoxaparin Sodium 40 MG/0.4 ML SYRINGE SC SCH (09:00)
--- NOTE | 2019-08-07 11:41 | PDOC.HOSPP ---
- Subjective Encounter Date: 08/07/19 Encounter Time: 10:00 Subjective: sob is better, c/o chest dyscomfort off and on in retrosternal area is amb to restroom and back - Objective Vital Signs & Weight: Vital Signs (12 hours) Temp Pulse Pulse Pulse Resp BP BP 08/07/19 11:13 95.9 F L 74 16 08/07/19 10:55 95 98 146/70 H 08/07/19 08:50 08/07/19 08:21 97.0 F L 90 15 08/07/19 07:15 67 18 08/07/19 07:13 67 18 08/07/19 05:20 69 18 158/70 H BP BP Pulse Ox 08/07/19 11:13 152/70 H 96 08/07/19 10:55 152/74 H 08/07/19 08:50 96 08/07/19 08:21 148/60 H 96 08/07/19 07:15 100 08/07/19 07:13 100 08/07/19 05:20 94 L Weight Weight 156 lb 6.4 oz I&O: 08/06/19 08/07/19 08/08/19 06:59 06:59 06:59 Output Total 800 Balance -800 Result Diagrams: 08/07/19 04:09 08/07/19 04:09 Hospitalist ROS - Medication Medications: Active Medications Generic Name Dose Route Start Last Admin Trade Name Freq PRN Reason Stop Dose Admin Acetaminophen 1,000 mg 08/06/19 21:00 08/06/19 21:27 Tylenol PO 1,000 mg HS ROBB Administration Albuterol/Ipratropium 3 ml 08/07/19 01:00 08/07/19 07:13 Duoneb NEB 3 ml [id number] ROBB Administration Aspirin 81 mg 08/07/19 09:00 08/07/19 08:54 Aspirin Chewable PO 81 mg DAILY ROBB Administration Atorvastatin Calcium 20 mg 08/06/19 21:00 08/06/19 21:28 Lipitor PO 20 mg QPM ROBB Administration Carvedilol 3.125 mg 08/06/19 21:00 08/07/19 08:54 Coreg PO 3.125 mg BID ROBB Administration Diphenhydramine HCl 50 mg 08/06/19 21:00 08/06/19 21:27 Benadryl PO 50 mg HS ROBB Administration Donepezil HCl 5 mg 08/06/19 21:00 08/06/19 21:28 Aricept PO 5 mg HS ROBB Administration Doxycycline Hyclate 100 mg 08/06/19 21:00 08/07/19 08:54 Vibramycin PO 100 mg BID ROBB Administration Enoxaparin Sodium 40 mg 08/07/19 09:00 08/07/19 08:54 Lovenox SC 40 mg 0900 ROBB Administration Furosemide 40 mg 08/07/19 06:00 08/07/19 05:20 Lasix SLOW IVP 08/07/19 23:59 40 mg 0600,1400 ROBB Administration Levothyroxine Sodium 112 mcg 08/07/19 06:00 08/07/19 05:20 Synthroid PO 112 mcg 0600 ROBB Administration Losartan Potassium 50 mg 08/07/19 09:00 08/07/19 08:54 Cozaar PO 50 mg DAILY ROBB Administration Methylprednisolone Sodium Succinate 20 mg 08/06/19 22:00 08/07/19 05:20 Solu-Medrol IVP 20 mg Q8HR ROBB Administration Mometasone Furoate/Formoterol Fumar 2 puff 08/07/19 06:30 08/07/19 07:15 Dulera 200 Mcg/5 Mcg Inhaler INH 2 puff BID-RT ROBB Administration Pantoprazole Sodium 40 mg 08/07/19 09:00 08/07/19 08:54 Protonix PO 40 mg DAILY ROBB Administration Sodium Chloride 10 ml 08/06/19 21:00 08/07/19 10:30 Flush - Normal Saline IVF Not Given Q12HR ROBB - Exam General Appearance: awake alert Eye: PERRL, anicteric sclera ENT: no oropharyngeal lesions, moist mucosa Neck: supple, no JVD Heart: RRR, no murmur Respiratory: no wheezes, no rales, rhonchi Gastrointestinal: soft, non-tender, non-distended, normal bowel sounds Extremities: no cyanosis, no edema Neurological: cranial nerve grossly intact, no focal deficits Psychiatric: normal affect, A&O x 3 Hosp A/P (1) Acute exacerbation of CHF (congestive heart failure) Code(s): I50.9 - HEART FAILURE, UNSPECIFIED Status: Acute Qualifiers: Heart failure type: unspecified Qualified Code(s): I50.9 - Heart failure, unspecified (2) COPD exacerbation Code(s): J44.1 - CHRONIC OBSTRUCTIVE PULMONARY DISEASE W (ACUTE) EXACERBATION Status: Acute (3) Chest pain Code(s): R07.9 - CHEST PAIN, UNSPECIFIED Status: Acute Qualifiers: Chest pain type: unspecified Qualified Code(s): R07.9 - Chest pain, unspecified (4) Dyslipidemia Code(s): E78.5 - HYPERLIPIDEMIA, UNSPECIFIED Status: Chronic (5) HTN (hypertension) Code(s): I10 - ESSENTIAL (PRIMARY) HYPERTENSION Status: Chronic Qualifiers: Hypertension type: essential hypertension Qualified Code(s): I10 - Essential (primary) hypertension (6) Hypothyroidism Code(s): E03.9 - HYPOTHYROIDISM, UNSPECIFIED Status: Chronic Qualifiers: Hypothyroidism type: unspecified Qualified Code(s): E03.9 - Hypothyroidism , unspecified - Plan change lasix to po after 2 pm dose continue nebs, short course of steroids, doxy stress test in am continue home meds as above, asp, lipitor, coreg, cozaar, protonix change to inpt status
[2019-08-07] MEDS: Acetaminophen 325 MG TAB PO PRN (16:02)
[2019-08-07] MEDS: Atorvastatin Calcium 20 MG TAB PO SCH (20:05)
[2019-08-07] MEDS: Donepezil HCl 5 MG TAB PO SCH (20:05)
[2019-08-07] MEDS: diphenhydrAMINE 25 MG CAP PO SCH (20:05)
[2019-08-07] MEDS: Acetaminophen 500 MG TAB PO SCH (20:05)
[2019-08-08 05:03] LABS: Anion Gap 16 mmol/L (10-20); BUN (Urea Nitrogen) 51 mg/dL (9.8-20.1); Calc. Creatinine Clearance 31 mL/min (70-130); Calcium 9.6 mg/dL (7.8-10.44); Carbon Dioxide 22 mmol/L (23-31); Chloride 103 mmol/L (98-107); Estimated GFR-MDRD 27; Glucose 172 mg/dL (83-110); Potassium 4.9 mmol/L (3.5-5.1); Sodium 136 mmol/L (136-145)
[2019-08-08] MEDS: Levothyroxine Sodium 112 MCG TAB PO SCH (05:40)
[2019-08-08] MEDS: methylPREDNISolone Sod Succ 40 MG VIAL IVP SCH (05:40)
[2019-08-08] MEDS: Mometasone/Formoterol 120 PUFF INHALER INH SCH ×4 (07:40→19:26)
[2019-08-08] MEDS: Sodium Chloride 0.9% 1,000 ML IV SCH ×2 (09:03→18:00)
[2019-08-08] MEDS: Aspirin Chewable 81 MG TAB PO SCH (09:09)
[2019-08-08] MEDS: Carvedilol 3.125 MG TAB PO SCH ×2 (09:09→20:47)
[2019-08-08] MEDS: Doxycycline 100 MG CAP PO SCH ×2 (09:09→20:47)
[2019-08-08] MEDS: Enoxaparin Sodium 30 MG/0.3 ML SYRINGE SC SCH (09:09)
[2019-08-08] MEDS ORDERED: Regadenoson 0.4 MG/5 ML SYRINGE ONE (11:03)
[2019-08-08] MEDS: Acetaminophen 325 MG TAB PO PRN (12:37)
--- NOTE | 2019-08-08 12:44 | NM ---
MYOCARDIAL PERFUSION SCAN: The patient was given 33 mCi for stress imaging and 32 mCi for rest imaging of Technetium labeled ses tamibi. INDICATION: Chest pain. FINDINGS: LexiScan protocol was followed. The left ventricle was imaged with SPECT imaging with attenuation co rrection images. Symmetric loss of activity in the inferior wall on nonattenuated images. This corrects partially wit h attenuation correction; however, the findings may represent inferior wall scar. There is no evidence of reversible ischemia. Wall motion shows mild inferior wall dyskinesias. The ejection fraction was recorded at 50%. IMPRESSION: Evidence of inferior wall scar. No evidence of reversible ischemia. POS: OFF
--- NOTE | 2019-08-08 13:39 | PDOC.HOSPP ---
- Subjective Encounter Date: 08/08/19 Encounter Time: 10:15 Subjective: breathing well now, no palp or chest pain - Objective Vital Signs & Weight: Vital Signs (12 hours) Temp Pulse Resp BP Pulse Ox 08/08/19 13:09 77 17 08/08/19 12:15 97.1 F L 78 18 150/68 H 96 08/08/19 08:06 97.4 F L 74 18 124/62 97 08/08/19 07:43 67 18 96 08/08/19 07:40 97 08/08/19 04:30 97.6 F 69 14 130/50 L 95 Weight Weight 153 lb 8.705 oz I&O: 08/07/19 08/08/19 08/09/19 06:59 06:59 06:59 Intake Total 251 Output Total 800 Balance -800 251 Result Diagrams: 08/07/19 04:09 08/08/19 04:09 Hospitalist ROS - Medication Medications: Active Medications Generic Name Dose Route Start Last Admin Trade Name Freq PRN Reason Stop Dose Admin Acetaminophen 650 mg 08/06/19 19:07 08/08/19 12:37 Tylenol PO 650 mg Q4H PRN Administration Headache/Fever/Mild Pain (1-3) Acetaminophen 1,000 mg 08/06/19 21:00 08/07/19 20:05 Tylenol PO 1,000 mg HS ROBB Administration Albuterol/Ipratropium 3 ml 08/07/19 01:00 08/08/19 13:09 Duoneb NEB 3 ml [id number] ROBB Administration Aspirin 81 mg 08/07/19 09:00 08/08/19 09:09 Aspirin Chewable PO 81 mg DAILY ROBB Administration Atorvastatin Calcium 20 mg 08/06/19 21:00 08/07/19 20:05 Lipitor PO 20 mg QPM ROBB Administration Carvedilol 3.125 mg 08/06/19 21:00 08/08/19 09:09 Coreg PO 3.125 mg BID ROBB Administration Diphenhydramine HCl 50 mg 08/06/19 21:00 08/07/19 20:05 Benadryl PO 50 mg HS ROBB Administration Donepezil HCl 5 mg 08/06/19 21:00 08/07/19 20:05 Aricept PO 5 mg HS ROBB Administration Doxycycline Hyclate 100 mg 08/06/19 21:00 08/08/19 09:09 Vibramycin PO 100 mg BID ROBB Administration Enoxaparin Sodium 30 mg 08/08/19 09:00 08/08/19 09:09 Lovenox SC 30 mg 0900 ROBB Administration Sodium Chloride 1,000 mls @ 100 mls/hr 08/08/19 07:00 08/08/19 09:03 Normal Saline 0.9% IV 1,000 mls .Q10H ROBB Administration Levothyroxine Sodium 112 mcg 08/07/19 06:00 08/08/19 05:40 Synthroid PO 112 mcg 0600 ROBB Administration Mometasone Furoate/Formoterol Fumar 2 puff 08/07/19 06:30 08/08/19 07:57 Dulera 200 Mcg/5 Mcg Inhaler INH Not Given BID-RT ROBB Pantoprazole Sodium 40 mg 08/07/19 09:00 08/08/19 09:09 Protonix PO 40 mg DAILY ROBB Administration Sodium Chloride 10 ml 08/06/19 21:00 08/08/19 09:09 Flush - Normal Saline IVF Not Given Q12HR ROBB Sodium Chloride 10 ml 08/06/19 19:22 08/08/19 05:41 Flush - Normal Saline IVF 10 ml PRN PRN Administration Saline Flush - Exam General Appearance: awake alert Eye: PERRL, anicteric sclera ENT: no oropharyngeal lesions, dry oral mucosa Neck: supple, no JVD Heart: RRR, no murmur Respiratory: no wheezes, no rales, rhonchi Gastrointestinal: soft, non-tender, normal bowel sounds Extremities: no cyanosis, no edema Neurological: cranial nerve grossly intact, no focal deficits Psychiatric: normal affect, A&O x 3 Hosp A/P (1) Acute exacerbation of CHF (congestive heart failure) Code(s): I50.9 - HEART FAILURE, UNSPECIFIED Status: Acute Qualifiers: Heart failure type: diastolic Qualified Code(s): I50.33 - Acute on chronic diastolic (congestive) heart failure (2) COPD exacerbation Code(s): J44.1 - CHRONIC OBSTRUCTIVE PULMONARY DISEASE W (ACUTE) EXACERBATION Status: Acute (3) Chest pain Code(s): R07.9 - CHEST PAIN, UNSPECIFIED Status: Acute Qualifiers: Chest pain type: unspecified Qualified Code(s): R07.9 - Chest pain, unspecified (4) Dyslipidemia Code(s): E78.5 - HYPERLIPIDEMIA, UNSPECIFIED Status: Chronic (5) HTN (hypertension) Code(s): I10 - ESSENTIAL (PRIMARY) HYPERTENSION Status: Chronic Qualifiers: Hypertension type: essential hypertension Qualified Code(s): I10 - Essential (primary) hypertension (6) Hypothyroidism Code(s): E03.9 - HYPOTHYROIDISM, UNSPECIFIED Status: Chronic Qualifiers: Hypothyroidism type: unspecified Qualified Code(s): E03.9 - Hypothyroidism , unspecified (7) MICHAEL (acute kidney injury) Code(s): N17.9 - ACUTE KIDNEY FAILURE, UNSPECIFIED Status: Acute - Plan has mihcael sec to diuresis, dc lasix and steroids continue nebs, doxy stress test is -ve, echo shows diastolic dysfunction continue asp, lipitor, coreg, protonix dc plan when creatinine shows downward trend to ambulate in hallway as tolerated
[2019-08-08] MEDS ORDERED: Morphine 2 MG/ML SYRINGE SLOW IVP PRN (15:02)
[2019-08-08] MEDS: diphenhydrAMINE 25 MG CAP PO SCH (20:47)
[2019-08-08] MEDS: Acetaminophen 500 MG TAB PO SCH (20:47)
[2019-08-08] MEDS: Atorvastatin Calcium 20 MG TAB PO SCH (20:47)
[2019-08-08] MEDS: Donepezil HCl 5 MG TAB PO SCH (20:47)
[2019-08-09] MEDS: Sodium Chloride 0.9% 1,000 ML IV SCH ×2 (04:39→12:57)
[2019-08-09] MEDS: Levothyroxine Sodium 112 MCG TAB PO SCH (06:26)
[2019-08-09] MEDS: Mometasone/Formoterol 120 PUFF INHALER INH SCH ×4 (07:09→20:01)
[2019-08-09 08:56] LABS: Anion Gap 13 mmol/L (10-20); BUN (Urea Nitrogen) 54 mg/dL (9.8-20.1); Calc. Creatinine Clearance 34 mL/min (70-130); Calcium 8.7 mg/dL (7.8-10.44); Carbon Dioxide 20 mmol/L (23-31); Chloride 112 mmol/L (98-107); Estimated GFR-MDRD 31; Glucose 94 mg/dL (83-110); Potassium 4.4 mmol/L (3.5-5.1); Sodium 141 mmol/L (136-145)
[2019-08-09] MEDS: Carvedilol 3.125 MG TAB PO SCH ×2 (09:01→21:12)
[2019-08-09] MEDS: Aspirin Chewable 81 MG TAB PO SCH (09:01)
[2019-08-09] MEDS: Doxycycline 100 MG CAP PO SCH ×2 (09:01→21:12)
[2019-08-09] MEDS: Enoxaparin Sodium 30 MG/0.3 ML SYRINGE SC SCH (09:02)
--- NOTE | 2019-08-09 12:07 | PDOC.HOSPP ---
- Subjective Encounter Date: 08/09/19 Encounter Time: 12:07 Subjective: Pt seen for followup re: acute on chromnic stage 3 renal failure. - Objective Vital Signs & Weight: Vital Signs (12 hours) Temp Pulse Pulse Pulse Resp BP BP 08/09/19 11:52 81 70 147/65 H 127/56 L 08/09/19 07:08 84 20 08/09/19 07:02 97.8 F 61 16 08/09/19 03:35 97.2 F L 80 14 08/09/19 00:54 104 H 16 BP Pulse Ox 08/09/19 11:52 08/09/19 07:08 99 08/09/19 07:02 156/85 H 98 08/09/19 03:35 162/70 H 94 L 08/09/19 00:54 97 Weight Weight 159 lb 8 oz I&O: 08/08/19 08/09/19 08/10/19 06:59 06:59 06:59 Intake Total 251 3260 Output Total 500 Balance 251 2760 Result Diagrams: 08/07/19 04:09 08/09/19 08:24 Additional Labs: Labs and MARs reviewed by ia Hospitalist ROS - Review of Systems Respiratory: reports: SOB with excertion Cardiovascular: denies: chest pain, palpitations, orthopnea, paroxysmal noc. dyspnea, edema, light headedness Gastrointestinal: denies: nausea, vomiting, abdominal pain, diarrhea, constipation, melena, hematochezia - Medication Medications: Active Medications Generic Name Dose Route Start Last Admin Trade Name Freq PRN Reason Stop Dose Admin Acetaminophen 650 mg 08/06/19 19:07 08/08/19 12:37 Tylenol PO 650 mg Q4H PRN Administration Headache/Fever/Mild Pain (1-3) Acetaminophen 1,000 mg 08/06/19 21:00 08/08/19 20:47 Tylenol PO 1,000 mg HS ROBB Administration Albuterol/Ipratropium 3 ml 08/07/19 01:00 08/09/19 07:08 Duoneb NEB 3 ml [id number] ROBB Administration Aspirin 81 mg 08/07/19 09:00 08/09/19 09:01 Aspirin Chewable PO 81 mg DAILY ROBB Administration Atorvastatin Calcium 20 mg 08/06/19 21:00 08/08/19 20:47 Lipitor PO 20 mg QPM ROBB Administration Carvedilol 3.125 mg 08/06/19 21:00 08/09/19 09:01 Coreg PO 3.125 mg BID ROBB Administration Diphenhydramine HCl 50 mg 08/06/19 21:00 08/08/19 20:47 Benadryl PO 50 mg HS ROBB Administration Donepezil HCl 5 mg 08/06/19 21:00 08/08/19 20:47 Aricept PO 5 mg HS ROBB Administration Doxycycline Hyclate 100 mg 08/06/19 21:00 08/09/19 09:01 Vibramycin PO 100 mg BID ROBB Administration Enoxaparin Sodium 30 mg 08/08/19 09:00 08/09/19 09:02 Lovenox SC 30 mg 0900 ROBB Administration Sodium Chloride 1,000 mls @ 100 mls/hr 08/08/19 07:00 08/09/19 04:39 Normal Saline 0.9% IV Not Given .Q10H ROBB Levothyroxine Sodium 112 mcg 08/07/19 06:00 08/09/19 06:26 Synthroid PO 112 mcg 0600 ROBB Administration Mometasone Furoate/Formoterol Fumar 2 puff 08/07/19 06:30 08/09/19 07:13 Dulera 200 Mcg/5 Mcg Inhaler INH Not Given BID-RT ROBB Morphine Sulfate 2 mg 08/08/19 15:02 08/08/19 15:31 Morphine SLOW IVP 2 mg Q4H PRN Administration Moderate to Severe Pain (6-10) Pantoprazole Sodium 40 mg 08/07/19 09:00 08/09/19 09:02 Protonix PO 40 mg DAILY ROBB Administration Sodium Chloride 10 ml 08/06/19 21:00 08/09/19 08:47 Flush - Normal Saline IVF Not Given Q12HR ROBB Sodium Chloride 10 ml 08/06/19 19:22 08/08/19 05:41 Flush - Normal Saline IVF 10 ml PRN PRN Administration Saline Flush - Exam General Appearance: NAD Eye: anicteric sclera ENT: normocephalic atraumatic, no oropharyngeal lesions Neck: supple Heart: RRR, no rubs Respiratory: CTAB, no rales Gastrointestinal: soft, non-tender Extremities: no clubbing Psychiatric: normal affect, normal behavior Hosp A/P (1) Acute worsening of stage 3 chronic kidney disease Code(s): N18.3 - CHRONIC KIDNEY DISEASE, STAGE 3 (MODERATE) Status: Acute (2) COPD exacerbation Code(s): J44.1 - CHRONIC OBSTRUCTIVE PULMONARY DISEASE W (ACUTE) EXACERBATION Status: Acute (3) Dyslipidemia Code(s): E78.5 - HYPERLIPIDEMIA, UNSPECIFIED Status: Chronic (4) HTN (hypertension) Code(s): I10 - ESSENTIAL (PRIMARY) HYPERTENSION Status: Chronic Qualifiers: Hypertension type: essential hypertension Qualified Code(s): I10 - Essential (primary) hypertension (5) Hypothyroidism Code(s): E03.9 - HYPOTHYROIDISM, UNSPECIFIED Status: Chronic Qualifiers: Hypothyroidism type: unspecified Qualified Code(s): E03.9 - Hypothyroidism , unspecified (6) Acute on chronic diastolic heart failure Code(s): I50.33 - ACUTE ON CHRONIC DIASTOLIC (CONGESTIVE) HEART FAILURE Status : Resolved - Plan continue antibiotics, out of bed/ambulate Continue oxygen, doxycycline and bronchodilators. Creatinine improved to1.64 today, continue IV fluids. Continue to hold Losartan.
[2019-08-09] MEDS: Acetaminophen 325 MG TAB PO PRN (18:14)
[2019-08-09] MEDS: Atorvastatin Calcium 20 MG TAB PO SCH (21:12)
[2019-08-09] MEDS: Acetaminophen 500 MG TAB PO SCH (21:12)
[2019-08-09] MEDS: Donepezil HCl 5 MG TAB PO SCH (21:12)
[2019-08-09] MEDS: diphenhydrAMINE 25 MG CAP PO SCH (21:12)
[2019-08-10] MEDS: Sodium Chloride 0.9% 1,000 ML IV SCH ×2 (00:02→09:09)
[2019-08-10] MEDS: Acetaminophen 325 MG TAB PO PRN (01:20)
[2019-08-10] MEDS: Levothyroxine Sodium 112 MCG TAB PO SCH (06:02)
[2019-08-10] MEDS: Mometasone/Formoterol 120 PUFF INHALER INH SCH (07:47)
[2019-08-10] MEDS: Enoxaparin Sodium 30 MG/0.3 ML SYRINGE SC SCH (09:08)
[2019-08-10] MEDS: Doxycycline 100 MG CAP PO SCH (09:08)
[2019-08-10] MEDS: Aspirin Chewable 81 MG TAB PO SCH (09:08)
[2019-08-10] MEDS: Carvedilol 3.125 MG TAB PO SCH (09:08)
[2019-08-10 10:13] LABS: Hemoglobin 11.4 g/dL (12.0-16.0); Mean Corpuscular HGB CONC 33.3 g/dL (32.0-36.0); Mean Corpuscular Hemoglobin 31.5 pg (27.0-31.0); Mean Corpuscular Volume 94.7 fL (78.0-98.0); RBC Distribution Width 12.6 % (11.5-14.5); Red Blood Cell (RBC) Count 3.61 mill/uL (4.20-5.40); White Blood Cell (WBC) Count 8.2 thou/uL (4.8-10.8)
[2019-08-10 10:22] LABS: Anion Gap 14 mmol/L (10-20); BUN (Urea Nitrogen) 40 mg/dL (9.8-20.1); Calc. Creatinine Clearance 44 mL/min (70-130); Calcium 8.4 mg/dL (7.8-10.44); Carbon Dioxide 16 mmol/L (23-31); Chloride 115 mmol/L (98-107); Estimated GFR-MDRD 40; Glucose 108 mg/dL (83-110); Potassium 5.3 mmol/L (3.5-5.1); Sodium 140 mmol/L (136-145)
[2019-08-10] MEDS ORDERED: Albuterol Sulfate 1.25 MG/3 ML NEB NEB SCH (10:45)
[2019-08-10 11:10] LABS: Eosinophils 3 % (0-10); Lymphocytes 45 % (21-51); MDiff Complete? YES; Mean Platelet Volume 9.5 fL (7.4-10.4); Monocytes 9 % (0-10); Neutrophil 39 % (42-75); Platelet Count 217 thou/uL (130-400); Platelet Morphology Comment Appears Adequate; Reactive Lymphocytes 4 % (0-10)
[2019-08-10] MEDS ORDERED: Albuterol Sulfate 2.5 mg/3 ml Neb ONE (11:49)
[2019-08-10] MEDS ORDERED: Albuterol Sulfate 2.5 mg/0.5 ml Neb ONE (11:54)
[2019-08-10 14:40] LABS: Potassium 4.6 mmol/L (3.5-5.1)
[2019-08-10 16:11] VITALS: BP 147/68; TEMP 97.8
--- NOTE | 2019-08-10 19:18 | DIS ---
DATE OF ADMISSION: 08/07/2019 DATE OF DISCHARGE: 08/10/2019 PRIMARY CARE PROVIDER: Dr. Juan Rojas. DISCHARGE DIAGNOSES: 1. Acute on chronic diastolic congestive heart failure, NYHA class III. 2. Chronic obstructive pulmonary disease exacerbation. 3. Acute on chronic stage 3 renal failure. 4. Hyperkalemia. CONDITION OF PATIENT ON THE DAY OF DISCHARGE: Stable. I assessed Ms. Rosario on the day of discharge. She denies any chest pain or shortness of breath. Vital signs are stable. S1 and S2 are heard, regular. Lungs are clear to auscultation bilaterally. POST ACUTE CARE FOLLOWUP: The patient is advised to follow up with primary care provider in 3 to 5 days' time and with her applications intern in 10 to 14 days' time. DISCHARGE MEDICATIONS: 1. Tylenol PM extra strength caplet two tablets at bedtime. 2. Aspirin 81 mg daily. 3. Symbicort 160/4.5 mcg one puff 2 times a day. 4. Aricept 5 mg daily. 5. Synthroid 112 mcg daily. 6. Omeprazole 40 mg daily. 7. Pravastatin 20 mg at bedtime. 8. Prednisone taper. 9. Coreg 3.125 mg 2 times a day. 10. Vibramycin 100 mg 2 times a day. 11. Lasix 20 mg daily. 12. Her losartan is on hold secondary to hyperkalemia and acute on chronic renal failure. HOSPITAL COURSE: Ms. Rosario is a pleasant 74-year-old lady, who was admitted to [facility] for CHF exacerbation and COPD exacerbation on 08/06/2019. Please refer to Dr. Leonard's history and physical note dated 08/06/2019, for further details. She had a normal TSH. Troponins were in the indeterminate range. She had nuclear stress test on 08/07/2019, which showed evidence of inferior wall scar and no evidence of reversible ischemia. She improved with diuretics, oxygen, steroids, bronchodilators, and antibiotics. However, her renal function worsened, most likely secondary to aggressive diuresis. Diuretics were held with improvement in renal function. 2D echocardiogram showed left ventricular ejection fraction of 50% to 55%, E/A flow reversal suggestive of diastolic dysfunction, mildly dilated left atrium, mild mitral regurgitation, mitral annular calcification, and mild tricuspid regurgitation. She continued to improve clinically. She is being discharged home in a stable condition. She has been advised to have her electrolytes and renal function checked through primary care provider's office in 5 to 7 days' time. She has also been advised to check her blood pressure and heart rate 3 times a day and show the readings to her primary care provider. The decision to resume losartan can be made once her renal function stabilizes. On the day of discharge, she has sodium 140, potassium 4.6, blood urea nitrogen of 40, creatinine 1.32. White count 8200, hemoglobin 11.4, and platelet count 217,000. Many thanks for allowing me to participate in your patient's care. Please feel free to contact me with any questions or concerns. DISCHARGE DESTINATION: Home. DIET: Heart healthy and low-sodium diet. ACTIVITY: As tolerated. TIME SPENT: Total amount of time spent coordinating this discharge: 32 minutes. Job ID: [id number]
== END 2019-08-10 16:48 | disposition home or self-care (01) | DRG 291 ==
LOC: ERS 15:55 → 2SW 20:28 → OBSVTOIN 08-07 09:51 → 2NO 08-07 12:34
PROVIDERS: ADMIT Internal Medicine; ATTEND Internal Medicine
DX: I13.0 Hypertensive heart and chronic kidney disease with heart failure and stage 1 through stage 4 chronic kidney disease, or unspecified chronic kidney disease (principal); I50.33 Acute on chronic diastolic (congestive) heart failure; J44.1 Chronic obstructive pulmonary disease with (acute) exacerbation; N17.9 Acute kidney failure, unspecified; Z66 Do not resuscitate; E78.00 Pure hypercholesterolemia, unspecified; E78.5 Hyperlipidemia, unspecified; I73.9 Peripheral vascular disease, unspecified; K57.90 Diverticulosis of intestine, part unspecified, without perforation or abscess without bleeding; E03.9 Hypothyroidism, unspecified; F03.90 Unspecified dementia, unspecified severity, without behavioral disturbance, psychotic disturbance, mood disturbance, and anxiety; I08.1 Rheumatic disorders of both mitral and tricuspid valves; N18.3 Chronic kidney disease, stage 3 (moderate); I25.10 Atherosclerotic heart disease of native coronary artery without angina pectoris; Z79.51 Long term (current) use of inhaled steroids; Z79.82 Long term (current) use of aspirin; Z79.890 Hormone replacement therapy; Z79.899 Other long term (current) drug therapy; Z87.891 Personal history of nicotine dependence; Z90.49 Acquired absence of other specified parts of digestive tract; Z90.710 Acquired absence of both cervix and uterus; Z88.0 Allergy status to penicillin; Z88.8 Allergy status to other drugs, medicaments and biological substances
CPT/HCPCS: 36415; 36416; 71045; 78452; 80048; 80053; 82553; 83880; 84443; 84484; 85025; 87040; 87804; 93005; 93017; 93306; 93798; 94640; 94760; A9500; J1650; J1940; J2270; J2785; J2920; J7611; J7620; Q0163

== ENCOUNTER 2019-12-28 13:26 | Emergency (ER) | payer MEDICARE ==
[2019-12-28 14:41] LABS: #Eosinphils 0.1 thou/uL (0.0-0.7); #Lymphocytes 3.1 thou/uL (1.20-3.40); #Monocytes 0.8 thou/uL (0.11-0.59); #Neutrophils 4.5 thou/uL (1.40-6.50); %Basophils 0.5 % (0.0-1.0); %Eosinophils 1.3 % (0.0-10.0); %Monocytes 9.6 % (0.0-10.0); %Neutrophils 52.7 % (42.0-75.0); Hemoglobin 10.7 g/dL (12.0-16.0); Mean Corpuscular HGB CONC 32.2 g/dL (32.0-36.0); Mean Corpuscular Hemoglobin 30.7 pg (27.0-31.0); Mean Corpuscular Volume 95.2 fL (78.0-98.0); Mean Platelet Volume 8.3 fL (7.4-10.4); Platelet Count 317 thou/uL (130-400); RBC Distribution Width 12.5 % (11.5-14.5); Red Blood Cell (RBC) Count 3.49 mill/uL (4.20-5.40); White Blood Cell (WBC) Count 8.6 thou/uL (4.8-10.8)
--- NOTE | 2019-12-28 14:48 | RAD ---
CHEST 1 VIEW: Date: 12/28/2019 HISTORY: Syncope. COMPARISON: 08/06/2019. FINDINGS: Postop changes involving both shoulders. Heart size is within normal limits. Minimal stable increased markings bilaterally, slightly more prominent in the right infrahilar region. No confluent pneumonia , overt edema, or pleural effusion. IMPRESSION: Stable appearing chest with some stable increased markings primarily in the right lower chest. No tosha dence for pneumonia or other acute process. POS: [facility]
[2019-12-28 15:01] LABS: Bilirubin Negative (Negative); Blood, Urine Negative (Negative); Clarity Turbid (Clear); Glucose, Urine (Dipstick) Normal (Negative); Leukocyte 250 Leu/uL (Negative); Nitrite Negative (Negative); Protein, Urine (Dipstick) Negative (Neg-Trace); RBC/HPF 0-3 HPF (0-3); Squamous Epithelial 0-3 HPF (0-3); Urobilinogen Normal mg/dL (Less than 2)
[2019-12-28 15:07] LABS: ALT (SGPT) 15 U/L (8-55); AST (SGOT) 22 U/L (5-34); Albumin 4.2 g/dL (3.4-4.8); Alkaline Phosphatase 80 U/L (40-110); Anion Gap 16 mmol/L (10-20); BUN (Urea Nitrogen) 22 mg/dL (9.8-20.1); Bilirubin, Total 0.2 mg/dL (0.2-1.2); CK (CPK) 94 U/L (29-168); Calc. Creatinine Clearance 0 mL/min (70-130); Calcium 9.5 mg/dL (7.8-10.44); Carbon Dioxide 22 mmol/L (23-31); Chloride 107 mmol/L (98-107); Estimated GFR-MDRD 45; Globulin 2.7 g/dL (2.4-3.5); Glucose 93 mg/dL (83-110); Potassium 4.3 mmol/L (3.5-5.1); Protein, Total 6.9 g/dL (6.0-8.3); Sodium 141 mmol/L (136-145)
[2019-12-28 15:13] LABS: Bacteria/HPF None Seen HPF (None Seen)
[2019-12-28 15:27] LABS: CKMB 1.7 ng/mL (0-6.6)
--- NOTE | 2019-12-28 16:22 | CT ---
BRAIN CT WITHOUT IV CONTRAST: History: Syncopal episode. Hematoma above right eye, injury. FINDINGS: Motion artifact somewhat lowers the sensitivity of the study. Right periorbital and supraorbital soft tissue swelling. Sinus mucosal changes in the sphenoid sinus and evidence for prior nasal sinal surg rom. The mastoids demonstrate right mastoidectomy changes. No focal mass or midline shift. No intra o r extraaxial hemorrhage. No mass or bleed. IMPRESSION: 1. Motion artifact lowers the sensitivity of this study. 2. No mass or bleed or other acute intracranial process. 3. Right supraorbital soft tissue swelling. 4. Post-operative right mastectomy and nasal sinus surgery with mucosal disease in the sphenoid sinus . POS: [facility]
--- NOTE | 2019-12-28 16:28 | CT ---
ORBITS CT SCAN WITHOUT IV CONTRAST: History: Deformity, right periorbital soft tissue swelling. Injury. FINDINGS: Right periorbital and supraorbital soft tissue swelling. No evidence for intraorbital mass or abnorma l fluid collection. Rectus muscles appear unremarkable. Visualized optic nerve is unremarkable. Post- operative nasal sinus surgical change with some sinus mucosal change including the ethmoid and maxill kandis and sphenoid sinuses. Zygomatic arches are intact. Visualized nasal bone unremarkable. IMPRESSION: 1. Right periorbital and supraorbital soft tissue swelling. No evidence for acute intraorbital abnorm ality. 2. No evidence for acute fracture or dislocation. 3. Post-operative nasal sinusal surgery with sinus mucosal disease. POS: [facility]
== END 2019-12-28 16:20 | disposition home or self-care (01) ==
LOC: ERS 13:26
DX: R55 Syncope and collapse (principal); S05.11XA Contusion of eyeball and orbital tissues, right eye, initial encounter; E78.5 Hyperlipidemia, unspecified; E78.00 Pure hypercholesterolemia, unspecified; E03.9 Hypothyroidism, unspecified; I10 Essential (primary) hypertension; J44.9 Chronic obstructive pulmonary disease, unspecified; Z79.82 Long term (current) use of aspirin; Z79.891 Long term (current) use of opiate analgesic; Z79.899 Other long term (current) drug therapy; Z87.891 Personal history of nicotine dependence; W19.XXXA Unspecified fall, initial encounter
CPT/HCPCS: 70450; 70480; 71045; 80053; 81003; 81015; 82550; 82553; 84484; 85025; 93005

== ENCOUNTER 2020-01-01 10:02 | Emergency (ER) | payer MEDICARE ==
--- NOTE | 2020-01-01 10:51 | RAD ---
Exam:3 views left ankle HISTORY: Fall. Pain. Swelling. COMPARISON: None FINDINGS: Diffuse bony mineralization. No significant soft tissue swelling. Joint spaces are preserve d. Intact ankle mortise. No fracture. IMPRESSION: No fracture.
[2020-01-01] MEDS ORDERED: HYDROcodone/Acetaminophen 7.5/325 mg Tablet ONE (11:35)
--- NOTE | 2020-01-01 12:07 | RAD ---
Exam:3 views left foot HISTORY: Trauma. Pain. Swelling. COMPARISON: 03/30/2014 FINDINGS: Lisfranc alignment is maintained. There is diffuse bone demineralization. There are fractur es involving the fourth and fifth metatarsal with minimal associated deformity. Remote injury to the second metatarsal is noted. IMPRESSION: Fourth and fifth metatarsal fractures. Associated soft tissue swelling and deformity.
[2020-01-01] MEDS ORDERED: Adacel (T-DAP) 0.5 ML SYRINGE ONE (12:12)
== END 2020-01-01 13:00 | disposition home or self-care (01) ==
LOC: ERS 10:02
DX: S92.342A Displaced fracture of fourth metatarsal bone, left foot, initial encounter for closed fracture (principal); S92.352A Displaced fracture of fifth metatarsal bone, left foot, initial encounter for closed fracture; E03.9 Hypothyroidism, unspecified; E78.5 Hyperlipidemia, unspecified; E78.00 Pure hypercholesterolemia, unspecified; I10 Essential (primary) hypertension; J44.9 Chronic obstructive pulmonary disease, unspecified; I25.10 Atherosclerotic heart disease of native coronary artery without angina pectoris; Z87.891 Personal history of nicotine dependence; Z79.82 Long term (current) use of aspirin; Z79.899 Other long term (current) drug therapy; Z23 Encounter for immunization; W01.0XXA Fall on same level from slipping, tripping and stumbling without subsequent striking against object, initial encounter
CPT/HCPCS: 90471; 90715

== ENCOUNTER 2020-01-19 07:16 | Day surgery (SDC) | payer MEDICARE, MEDICAID ==
[2020-01-16 14:49] VITALS: BMI 29.8
[2020-01-19 08:07] VITALS: BP 112/36; TEMP 98
--- NOTE | 2020-01-19 08:49 | RAD ---
LUMBAR MYELOGRAM: HISTORY: Lumbar radiculopathy. Status post lumbar fusion. COMPARISON: 05/15/2017. EXPOSURE: 0.6 minutes, 988.7 mGy*^m2. FINDINGS: Initial two-view orbitread operator lumbar spine radiograph demonstrates bilateral transpedicular screws at L3, L4 and L5. No perihardware lucency. L3-L4 disc prosthesis. Vacuum disc phenomenon at the L5-S1 level. Atherosclerosis of the aorta is noted. There is a stent in the left common iliac artery. Visualized bony pelvis and sacrum demonstrate chronic changes. Successful lumbar puncture. A total of 9 cc of Isovue-M 200 contrast was administered intrathecally a t the L4-L5 level. TECHNIQUE: Consent obtained to perform a lumbar puncture for lumbar myelogram. Patient's back was evaluated. The L4-L5 level was deemed appropriate. Skin was prepped and draped in a sterile fashion. 1% lidocaine, buffered with sodium bicarbonate was used for local anesthesia. Under fluoroscopic guidanc e, a 22-gauge spinal needle was advanced into the CSF space. Via a short tubing catheter, a total of 9 cc of Isovue-M 200 contrast was administered intrathecally. Patient tolerated the procedure well . No immediate or postprocedure complications. IMPRESSION: Successful lumbar puncture for lumbar myelogram. Transcribed Date/Time: 01/19/2020 8:56 AM
--- NOTE | 2020-01-19 09:26 | CT ---
POSTMYELOGRAM LUMBAR SPINE CT: COMPARISON: 05/15/2017. HISTORY: Lumbar fusion. Lumbar radiculopathy. FINDINGS: Redemonstration of a exophytic cyst emanating from the lower pole of the left kidney with an attenuat ion coefficient of 5.5 Hounsfield units. Incomplete evaluation. No acute abnormality in the visualized solid organs. Technique does limit evaluation. Gallbladder is surgically absent. Visualized alimentary canal does not demonstrate any mucosal abnormality. Symmetric attenuation of the paraspinal muscles. Atherosclerosis of the abdominal aorta is redemonstrated. Stent in the left common iliac artery is id entified. Presacral fat is preserved. Sacral ala are intact. Stable degenerative changes involving the left and right sacroiliac joint spaces. Five lumbar-type vertebrae. Lumbar spine vertebral body height is maintained. There is fracture. No s pondylolisthesis. No spondylolysis. Redemonstration of bilateral transpedicular screws at L3, L4 and L5. There is vacuum disc phenomenon at L5-S1 with severe loss of disc space height, endplate sclerosis and osteophyte formation. The degree of degenerative change at L5-S1 has significantly progressed. Previously, there was no evidenc e of endplate change or vacuum disc phenomenon. Stable disc prosthesis at L3-L4. Conus medullaris terminates at the mid L1 level. T11-T12 and T12-L1: No significant central canal stenosis or significant neural foraminal narrowing. L1-L2: No significant central canal stenosis or significant neural foraminal narrowing. L2-L3: Broad-based disc bulge, ligament flavum thickening and facet appears result in mild central ca nal stenosis. Mild bilateral neural foraminal narrowing. L3-L4: Disc prosthesis. No significant central canal stenosis. Moderate to severe right neural forami nal narrowing with soft tissue attenuation. Patent left neural foramen.. L4-L5: Laminectomy defect. Broad-based disc bulge abuts the thecal sac. No significant central canal stenosis. Moderate bilateral foraminal narrowing due to disc material and posterior element hypertrophy. L5-S1: Vacuum disc phenomenon. Broad-based disc bulge with a central and left subarticular disc herni ation. Minimal contact upon the ventral thecal sac. Right subareolar zone is patent. There is mass effect and partial obscuration of the traversing left S1 nerve root, due to disc material. Severe ivelisse ateral neural foraminal narrowing. IMPRESSION: 1. Stable fusion changes. 2. Interval development of severe degenerative changes at L5-S1. There is loss of disc space height, vacuum disc phenomenon and endplate sclerosis. 3. Narrowing of the left subarticular zone at L5-S1 likely due to disc material. Partial obscuration of the traversing left S1 nerve root. 4. Moderate to severe bilateral neural foraminal narrowing at L5-S1 which as progressed since the pre vious exam. 5. Abnormal soft tissue attenuation in the right neural foramen at L3-L4, with resultant moderate to severe right neural foraminal narrowing. Transcribed Date/Time: 01/19/2020 9:46 AM
[2020-01-19] MEDS ORDERED: Iopamidol-M 200 41% 20 ML VIAL ONE (09:32)
== END 2020-01-19 10:10 | disposition home or self-care (01) ==
LOC: RAD 07:16 → EDSTATUS 08:00 → RAD 10:10
PROVIDERS: ATTEND Neurological Surgery
PROC: B01B1ZZ Fluoroscopy of Spinal Cord using Low Osmolar Contrast (ICD-10-PCS; principal; 2020-01-19)
DX: M54.16 Radiculopathy, lumbar region (principal); M48.061 Spinal stenosis, lumbar region without neurogenic claudication; M48.07 Spinal stenosis, lumbosacral region; I70.0 Atherosclerosis of aorta; N28.1 Cyst of kidney, acquired; I25.10 Atherosclerotic heart disease of native coronary artery without angina pectoris; J44.9 Chronic obstructive pulmonary disease, unspecified; I11.0 Hypertensive heart disease with heart failure; I50.9 Heart failure, unspecified; F03.90 Unspecified dementia, unspecified severity, without behavioral disturbance, psychotic disturbance, mood disturbance, and anxiety; E03.9 Hypothyroidism, unspecified; Z87.891 Personal history of nicotine dependence; Z79.82 Long term (current) use of aspirin; Z79.899 Other long term (current) drug therapy; Z88.0 Allergy status to penicillin; Z88.8 Allergy status to other drugs, medicaments and biological substances; Z95.820 Peripheral vascular angioplasty status with implants and grafts; Z98.1 Arthrodesis status
CPT/HCPCS: 62304; 72132

== ENCOUNTER 2020-03-26 06:35 | Outpatient (CLI) | payer MEDICARE, MEDICAID, OTHER ==
[2020-03-26 13:57] LABS: INR-International Normal Ratio 0.9; PTT 25.3 sec (22.9-36.1); Prothrombin Time 12.4 sec (12.0-14.7)
[2020-03-26 14:04] LABS: Hemoglobin 11.8 g/dL (12.0-16.0); Mean Corpuscular HGB CONC 31.6 g/dL (32.0-36.0); Mean Corpuscular Hemoglobin 30.8 pg (27.0-31.0); Mean Corpuscular Volume 97.4 fL (78.0-98.0); Platelet Count 327 thou/uL (130-400); RBC Distribution Width 12.4 % (11.5-14.5); Red Blood Cell (RBC) Count 3.83 mill/uL (4.20-5.40); White Blood Cell (WBC) Count 13.6 thou/uL (4.8-10.8)
[2020-03-26 15:43] LABS: Anion Gap 15 mmol/L (10-20); BUN (Urea Nitrogen) 52 mg/dL (9.8-20.1); Calc. Creatinine Clearance 0 mL/min (70-130); Calcium 9.8 mg/dL (7.8-10.44); Carbon Dioxide 23 mmol/L (23-31); Chloride 106 mmol/L (98-107); Estimated GFR-MDRD 28; Glucose 122 mg/dL (83-110); Potassium 5.8 mmol/L (3.5-5.1); Sodium 138 mmol/L (136-145)
[2020-03-27 12:16] LABS: SARS-CoV-2 MS2 Positive; SARS-CoV-2 N Gene Negative; SARS-CoV-2 S Gene Negative; SARS-CoV-2 orf1ab Negative
== END 2020-03-26 06:36 | disposition home or self-care (01) ==
LOC: LABBT 06:35
PROVIDERS: ATTEND Neurological Surgery
DX: Z01.818 Encounter for other preprocedural examination (principal); Z11.59 Encounter for screening for other viral diseases; M54.16 Radiculopathy, lumbar region
CPT/HCPCS: 80048; 85027; 85610; 85730; 93005; U0003; 87635; 93010

== ENCOUNTER 2020-05-14 06:58 | Outpatient (CLI) | payer MEDICARE, MEDICAID, OTHER ==
[2020-05-14 14:43] LABS: Mean Corpuscular Volume 96.8 fL (78.0-98.0); Mean Platelet Volume 8.7 fL (7.4-10.4); Platelet Count 351 thou/uL (130-400); RBC Distribution Width 12.6 % (11.5-14.5); Red Blood Cell (RBC) Count 3.67 mill/uL (4.20-5.40); White Blood Cell (WBC) Count 11.2 thou/uL (4.8-10.8)
[2020-05-14 16:04] LABS: Anion Gap 17 mmol/L (10-20); BUN (Urea Nitrogen) 43 mg/dL (9.8-20.1); Calc. Creatinine Clearance 0 mL/min (70-130); Calcium 8.8 mg/dL (7.8-10.44); Carbon Dioxide 20 mmol/L (23-31); Chloride 107 mmol/L (98-107); Estimated GFR-MDRD 25; Glucose 172 mg/dL (83-110); Sodium 139 mmol/L (136-145)
[2020-05-15 12:19] LABS: SARS-CoV-2 MS2 Positive; SARS-CoV-2 N Gene Negative; SARS-CoV-2 S Gene Negative; SARS-CoV-2 by NAA Not Detected (NotDetected); SARS-CoV-2 orf1ab Negative
== END 2020-05-14 06:59 | disposition home or self-care (01) ==
LOC: LABBT 06:58
PROVIDERS: ATTEND Neurological Surgery
DX: Z01.818 Encounter for other preprocedural examination (principal); Z20.828 Contact with and (suspected) exposure to other viral communicable diseases; M54.16 Radiculopathy, lumbar region
CPT/HCPCS: 80048; 85027; 93005; U0003; 87635; 93010

== ENCOUNTER 2020-05-14 12:00 | Inpatient (IN) | payer MEDICARE, MEDICAID ==
[2020-05-19] MEDS ORDERED: Clindamycin/D5W 900 mg/50 ml Premix Bag ONE (06:30)
[2020-05-19] MEDS ORDERED: Levofloxacin 500 mg/D5W 100 ml Premix Bag ONE (06:30)
[2020-05-19] MEDS ORDERED: Midazolam HCl 2 mg/2 ml Vial ONE (06:48)
[2020-05-19] MEDS ORDERED: Fentanyl 100 MCG/2 ML VIAL ONE ×2 (06:48→09:08)
[2020-05-19] MEDS ORDERED: SUGAMMADEX SODIUM 200 MG/2 ML VIAL ONE (08:55)
[2020-05-19] MEDS ORDERED: Ondansetron HCl/PF 4 MG/2 ML Vial IVP PRN (09:08)
[2020-05-19] MEDS ORDERED: traMADol HCl 50 MG TAB PO PRN ×2 (09:19)
[2020-05-19] MEDS ORDERED: Promethazine 25 MG TAB PO PRN (09:19)
[2020-05-19] MEDS ORDERED: HYDROcodone/Acetaminophen 10/325 mg Tablet PO PRN (09:19)
[2020-05-19] MEDS ORDERED: diphenhydrAMINE 25 MG CAP PO PRN (09:19)
[2020-05-19] MEDS ORDERED: diphenhydrAMINE 50 MG/ML VIAL IVP PRN (09:19)
[2020-05-19] MEDS ORDERED: Promethazine HCl 25 MG/ML VIAL IM PRN (09:19)
[2020-05-19] MEDS ORDERED: Mag-Al 1200 mg/1200 mg/30 ML UDCUP PO PRN (09:19)
[2020-05-19] MEDS ORDERED: Bisacodyl 10 MG SUPP PR PRN (09:19)
[2020-05-19] MEDS ORDERED: Promethazine HCl 12.5 MG SUPP PR PRN (09:19)
[2020-05-19] MEDS ORDERED: Ondansetron PF 4 MG/2 ML Vial IM PRN (09:19)
[2020-05-19] MEDS ORDERED: Morphine 2 MG/ML VIAL SLOW IVP PRN (09:19)
[2020-05-19] MEDS ORDERED: Morphine 4 MG/ML VIAL SLOW IVP PRN (09:19)
[2020-05-19] MEDS ORDERED: tiZANidine HCl 4 MG TAB PO PRN (09:19)
[2020-05-19] MEDS ORDERED: Milk Of Magnesia 30 ML UDCUP PO PRN (09:19)
--- NOTE | 2020-05-19 09:57 | OP ---
DATE OF PROCEDURE: 05/19/2020 [employer]ISK AND COMPLIANCE ANALYTICS DIRECTOR: Thalia Frye PA-C PROCEDURES PERFORMED: Removal of hardware L3 through L5, expiration of spinal fusion L3 through L5, L5-S1 laminectomy, posterolateral arthrodesis L3 through S1, pedicle screw instrumentation L3 through S1, demineralized bone matrix, local morselized autograft. DESCRIPTION OF PROCEDURE: The patient was brought to the operating room and intubated. She was rolled in a prone position on gel-filled chest rolls. The previous incision was reopened at L3 through the sacrum were identified. We removed the prior nuts and rods, explored the spinal fusion and could not be convinced that it was solid. We next performed modest bilateral L5-S1 decompression. We next placed pedicle screws at S1 using lateral fluoroscopic guidance. A dione was then secured from L3 through S1, connected by nuts, which were final tightened. The right L3 screw could not be connected a nut. Next, the wound was extensively irrigated and MAC hemostasis was secured. A combination of demineralized bone matrix and local morselized autograft was laid over the lamina on posterolateral surfaces for the purpose of arthrodesis. Vancomycin powder was applied and the wound was closed in anatomic layers over drain. Job ID: [id number]
[2020-05-19] MEDS ORDERED: Ondansetron PF 4 MG/2 ML Vial ONE (10:13)
[2020-05-19] MEDS ORDERED: PHENYLEPHRINE-NS 100 MCG/ML 10 ML SYRINGE ONE (10:13)
[2020-05-19] MEDS ORDERED: Glycopyrrolate 0.2 MG/ML 5 ML SYRINGE ONE (10:13)
[2020-05-19] MEDS ORDERED: Lidocaine 1% PF 5 ML VIAL ONE (10:13)
[2020-05-19] MEDS ORDERED: Rocuronium Bromide 10 MG/ML (10ML VIAL) ONE (10:13)
[2020-05-19] MEDS ORDERED: PROPOFOL 200 MG/20 ML VIAL ONE (10:13)
[2020-05-19] MEDS ORDERED: EPHEDRINE 25 MG/5 ML SYRINGE ONE (10:13)
[2020-05-19] MEDS ORDERED: Dexamethasone 20 MG/5 ML VIAL ONE (10:13)
[2020-05-19] MEDS ORDERED: Acetaminophen/Codeine 30-300mg Tablet PO PRN (11:52)
[2020-05-19] MEDS ORDERED: [UNRECOGNIZED DRUG - OTHER] PO PRN (11:53)
[2020-05-19] MEDS ORDERED: Fluticasone Propionate Nasal Spray 16 gm Bottle NASAL PRN (11:56)
[2020-05-19] MEDS ORDERED: HYDROcodone/Acetaminophen 7.5/325 mg Tablet PO PRN (11:57)
[2020-05-19] MEDS: Clindamycin/D5W 900 MG in Premix Bag 1 BAG IVPB SCH ×2 (13:19→22:12)
[2020-05-19] MEDS: Sodium Chloride 0.9% 1,000 ML IV SCH ×2 (13:20→23:06)
[2020-05-19 16:11] VITALS: BMI 27.4
[2020-05-19] MEDS: HYDROcodone/Acetaminophen 10/325 mg Tablet PO PRN ×2 (17:08→20:58)
--- NOTE | 2020-05-19 18:37 | PDOC.FPRHP ---
- History of Present Illness Chief Complaint: none History of Present Illness: 75 yo F with PMH of COPD, HTN, CKD, hypothyroidism presented for medical management after surgical procedure for radiculopathy. Dr. Garcia performed a L3-L5 hardware removal and L5-S1 laminectomy with autograft on 05/19. Pt reports she was having pain and weakness down her left left and sometimes falling, and reports after the surgery it is now resolved. Denies numbness/tingling in any extremities. Patient states she is feeling well, pain is well controlled. Reports she has decreased appetite that she contributes to her pain medication. She reports hair loss. States she was recently seen in clinic for diverticulitis and is currently on antibiotics. - Allergies/Adverse Reactions Allergies Allergy/AdvReac Type Severity Reaction Status Date / Time gabapentin Allergy Verified 05/18/20 10:50 Penicillins Allergy "passed Verified 05/18/20 10:50 out " "i just , they brought me back" - Home Medications Medication Instructions Recorded Confirmed Type Levothyroxine Sodium [Synthroid] 112 mcg PO QAM 08/01/16 05/18/20 History Acetaminophen/Diphenhydramine 2 tab PO HS PRN 02/06/18 05/18/20 History [Tylenol Pm Ex-Strength Caplet] Aspirin [Aspir-Low] 81 mg PO DAILY 08/06/19 05/18/20 History Donepezil HCl [Aricept] 5 mg PO QAM 08/06/19 05/18/20 History Omeprazole 40 mg PO DAILY-AC 08/06/19 05/18/20 History Pravastatin Sodium [Pravachol] 20 mg PO HS 08/06/19 05/18/20 History Acetaminophen With Codeine 1 tablet PO Q6HR PRN 01/16/20 05/18/20 History [Tylenol with Codeine #3] Carvedilol [Coreg] 3.125 mg PO HS 01/16/20 05/18/20 History Losartan Potassium 100 mg PO QAM 01/16/20 05/18/20 History Multivitamin [Multi-Vitamin Daily] 1 tablet PO DAILY 01/16/20 05/18/20 History Umeclidinium/Vilanterol [Anoro 1 unit IH QAM 01/16/20 05/18/20 History Ellipta 62.5-25 Mcg INH] Amlodipine [Norvasc] 2.5 mg PO QAM 03/25/20 05/18/20 History Biotin/Calcium Carbonate [Biotin] 1 tablet PO DAILY 03/25/20 05/18/20 History Cider Vinegar [Apple Cider Vinegar] 1 tab PO BID 03/25/20 05/18/20 History Famotidine 1 tab PO HS 03/25/20 05/18/20 History Furosemide 20 mg PO QAM 03/25/20 05/18/20 History Ciprofloxacin HCl [Cipro] 500 mg PO BID 05/18/20 05/18/20 History Fluticasone Propionate [Flonase 1 - 2 spray NASAL PRN PRN 05/18/20 05/18/20 History Nasal [place]] HYDROcodone/Acetaminophen [[place] 1 each PO PRN PRN 05/18/20 05/18/20 History 7.5-325 Tablet] metroNIDAZOLE [Flagyl] 500 mg PO DAILY 05/18/20 05/18/20 History - History PMHx: COPD, psoriatic arthritis, sciatica, radiculopathy, HTN, CKD, anxiety, diverticulitis, hypercholesterolemia, hypothyroidism, GERD with esophagittis, psoriasis, osteoporosis, anemia, fecal incontinence, allergic rhinitis, jraynauds, Heart failure, dementia, BPV, hx of falling, diverticulitis PSHx: lumbar spine surgery, hysterectomy ,appendectomy, open sarah, right finger , right rotator cuffx2, left shoulder FHx: denies fam hx of DM, mother had bladder cancer Social: smoked age [age], at most 2.5 PPD. Denies alcohol or hx of drug use. Lives at [facility]/memory care. - Review of Systems General: reports: weight/appetite/sleep changes (decreased appetite post op). denies: fever/chills Eyes: denies: eye pain, vision changes ENT: denies: nasal congestion, rhinorrhea Respiratory: denies: cough, congestion, shortness of breath Cardiovascular: denies: chest pain, palpitation, edema Gastrointestinal: reports: diarrhea. denies: nausea, vomiting, constipation, abdominal pain Genitourinary: reports: incontinence Skin: denies: rashes Musculoskeletal: denies: pain, stiffness Neurological: denies: numbness, weakness Psychological: reports: anxiety. denies: depression - Vital signs BP: 113/64 HR: 88 RR: 16 Tmax: 97.6 Pox: 98% on RA Wt: 70 kg - Physical Exam Constitutional: NAD, awake, alert and oriented HEENT: normocephalic and atraumatic, PERRLA, no scleral icterus, MMM, other ( mild hearing loss) Neck: supple, no LAD Heart: RRR, normal S1/S2, no murmurs/rubs/gallops, pulses present, no edema Lungs: CTAB, no respiratory distress, no wheezing (patient was getting duoneb during our examination) Abdomen: soft, non-tender, bowel sounds present, no masses/distention Musculoskeletal: normal structure, normal tone, ROM grossly normal Neurological: no focal deficit, CN II-XII intact, normal sensation Skin: no rash/lesions, good turgor Heme/Lymphatic: no unusual bruising or bleeding, no purpura Psychiatric: normal mood and affect, intact recent and remote memory FMR H&P: Results - Labs Result Diagrams: 05/19/20 19:17 05/19/20 19:17 FMR H&P: A/P - Problem List (1) History of lumbar laminectomy Current Visit: Yes Status: Acute Code(s): Z98.890 - OTHER SPECIFIED POSTPROCEDURAL STATES (2) COPD (chronic obstructive pulmonary disease) Current Visit: Yes Status: Chronic (3) Psoriatic arthritis Current Visit: Yes Status: Chronic Code(s): L40.50 - ARTHROPATHIC PSORIASIS , UNSPECIFIED (4) Sciatica Current Visit: Yes Status: Chronic Code(s): M54.30 - SCIATICA, UNSPECIFIED SIDE (5) Radiculopathy Current Visit: Yes Status: Chronic Code(s): M54.10 - RADICULOPATHY, SITE UNSPECIFIED (6) CKD (chronic kidney disease) Current Visit: Yes Status: Chronic Code(s): N18.9 - CHRONIC KIDNEY DISEASE, UNSPECIFIED (7) Diverticulitis Current Visit: Yes Status: Chronic Code(s): K57.92 - DVTRCLI OF INTEST, PART UNSP, W/O PERF OR ABSCESS W/O BLEED (8) GERD (gastroesophageal reflux disease) Current Visit: Yes Status: Chronic Code(s): K21.9 - GASTRO-ESOPHAGEAL REFLUX DISEASE WITHOUT ESOPHAGITIS (9) Anemia of chronic disease Current Visit: Yes Status: Chronic Code(s): D63.8 - ANEMIA IN OTHER CHRONIC DISEASES CLASSIFIED ELSEWHERE (10) Heart failure Current Visit: Yes Status: Chronic Code(s): I50.9 - HEART FAILURE, UNSPECIFIED (11) Dementia Current Visit: Yes Status: Chronic Code(s): F03.90 - UNSPECIFIED DEMENTIA WITHOUT BEHAVIORAL DISTURBANCE (12) BPV (benign positional vertigo) Current Visit: Yes Status: Chronic Code(s): H81.10 - BENIGN PAROXYSMAL VERTIGO, UNSPECIFIED EAR (13) Lumbar disc disease Current Visit: No Status: Chronic Code(s): M51.9 - UNSP THORACIC, THORACOLUM AND LUMBOSACR INTVRT DISC DISORDER (14) Dyslipidemia Current Visit: No Status: Chronic Code(s): E78.5 - HYPERLIPIDEMIA, UNSPECIFIED (15) HTN (hypertension) Current Visit: No Status: Chronic Code(s): I10 - ESSENTIAL (PRIMARY) HYPERTENSION Qualifiers: Hypertension type: essential hypertension Qualified Code(s): I10 - Essential (primary) hypertension (16) Hypothyroidism Current Visit: No Status: Chronic Code(s): E03.9 - HYPOTHYROIDISM, UNSPECIFIED Qualifiers: Hypothyroidism type: unspecified Qualified Code(s): E03.9 - Hypothyroidism , unspecified - Plan S/p lumbar laminectomy with hardware removal -Dr. Garcia, 05/19, appreciate neurosurery recs -Pain is well controlled -Patient reports radiculopathy is improved -PT/OT consulted -Plan on discharge to return to [facility] living/memory unit COPD -continue home dulera -PRN duonebs HTN -continue home medication CKD -Check BMP, monitor kidney function diverticulitis -continue antibiotics hypercholesterolemia -continue home statin hypothyroidism -recheck TSH, syjmptomatic with hair loss GERD with esophagitis -continue home PPI Congestive Heart failure -not fluid overloaded on exam today -strict I/os, fluid restrict 1800 ml/day -weight daily Psoriasis, osteoporosis, anemia, fecal incontinence, allergic rhinitis, raynauds , dementia, BPV, hx of falling -aware, continue home medications PCP: Ashwin DVT ppx: will discuss with neurosurgery GI ppx: omeprazole Diet: HH, fluid restrict Code: DNR Dispo: obs, LOS likely <48 hrs FMR H&P: Upper Level - Plan Date/Time: [id number] I, [], have evaluated this patient and agree with findings/plan as outlined by technology internship resident. Pertinent changes/additions are listed here. Addendum - Attending - Attending Attestation Date/Time: 05/19/201906 I personally evaluated the patient and discussed the management with Dr. Meehan I agree with the History, Examination, Assessment and Plan documented above with any addition or exceptions noted below. Will follow along side to manage chronic conditions. Patient very concerned with hair loss. Has been present for several years. Has previously been evaluated. Recommended [facility] but patient no longer using. + fam hx. Reassurance provided. Leyda
[2020-05-19 19:28] LABS: #Monocytes 0.6 thou/uL (0.11-0.59); #Neutrophils 10.9 thou/uL (1.40-6.50); %Eosinophils 0.3 % (0.0-10.0); %Lymphocytes 8.1 % (21.0-51.0); %Monocytes 4.6 % (0.0-10.0); %Neutrophils 86.9 % (42.0-75.0); Mean Corpuscular HGB CONC 32.8 g/dL (32.0-36.0); Mean Corpuscular Volume 94.4 fL (78.0-98.0); Platelet Count 272 thou/uL (130-400); RBC Distribution Width 12.8 % (11.5-14.5); Red Blood Cell (RBC) Count 3.21 mill/uL (4.20-5.40); White Blood Cell (WBC) Count 12.5 thou/uL (4.8-10.8)
[2020-05-19 19:47] LABS: Anion Gap 17 mmol/L (10-20); BUN (Urea Nitrogen) 36 mg/dL (9.8-20.1); Calc. Creatinine Clearance 44 mL/min (70-130); Calcium 8.7 mg/dL (7.8-10.44); Carbon Dioxide 21 mmol/L (23-31); Chloride 108 mmol/L (98-107); Estimated GFR-MDRD 42; Glucose 150 mg/dL (83-110); Potassium 5.3 mmol/L (3.5-5.1); Sodium 141 mmol/L (136-145)
[2020-05-19] MEDS: Carvedilol 3.125 MG TAB PO SCH (20:57)
[2020-05-19] MEDS: Ciprofloxacin 500 MG TAB PO SCH (20:58)
[2020-05-19] MEDS ORDERED: [UNRECOGNIZED DRUG - OTHER] PO SCH (21:00)
[2020-05-19] MEDS: Simvastatin 10 MG TAB PO SCH (21:01)
[2020-05-20] MEDS ORDERED: Fluticasone Propionate Nasal Spray 16 gm Bottle NASAL PRN (02:07)
[2020-05-20] MEDS: Clindamycin/D5W 900 MG in Premix Bag 1 BAG IVPB SCH (05:45)
[2020-05-20] MEDS: Ciprofloxacin 500 MG TAB PO SCH (05:45)
[2020-05-20] MEDS: Levothyroxine Sodium 112 MCG TAB PO SCH (05:46)
--- NOTE | 2020-05-20 06:35 | PDOC.FM ---
- Subjective Subjective: Pt doing well this morning. States pain is controlled. Ambulating better now than previous to surgery. In regards to diverticulitis thinks she is supposed to be on abx for 10 days and believes she is about at that time currently. Denies any continued abdominal pain, bloody stools, diarrhea. [facility] she believes. - Objective Vital Signs & Weight: Vital Signs (12 hours) Temp Pulse Resp BP Pulse Ox 05/20/20 04:57 98 F 72 20 115/67 98 05/20/20 00:11 99.1 F 77 20 99/56 L 93 L 05/19/20 23:43 76 16 100 05/19/20 21:02 94 L 05/19/20 19:23 98.6 F 67 16 96/56 L 94 L Weight Weight 78.018 kg I&O: 05/18/20 05/19/20 05/20/20 06:59 06:59 06:59 Output Total 10 Balance -10 Result Diagrams: 05/20/20 10:04 05/20/20 10:04 Phys Exam - Physical Examination Constitutional: NAD HEENT: moist MMs, sclera anicteric Respiratory: no wheezing, no rales, no rhonchi, clear to auscultation bilateral Cardiovascular: RRR, no significant murmur Gastrointestinal: soft, non-tender, no distention, positive bowel sounds Musculoskeletal: no edema, pulses present Neurological: non-focal, moves all 4 limbs Psychiatric: normal affect, A&O x 3 Skin: no rash, cap refill <2 seconds Dx/Plan - Plan Plan: S/p lumbar laminectomy with hardware removal -Dr. Garcia, 05/19 -Pain is well controlled -Patient reports radiculopathy is improved -PT/OT consulted -Plan on discharge to return to [facility] assisted living/memory unit Hyperkalemia -chronic problem, 5.3 on admission -will trend COPD -continue home dulera -PRN duonebs HTN -continue home medication CKD -Cr at baseline diverticulitis -continue antibiotics, will clarify stop date with facility hypercholesterolemia -continue home statin hypothyroidism -TSH wnl GERD with esophagitis -continue home PPI Congestive Heart failure -not fluid overloaded on exam today -strict I/os, fluid restrict 1800 ml/day -weight daily Psoriasis, osteoporosis, anemia, fecal incontinence, allergic rhinitis, raynauds , dementia, BPV, hx of falling -aware, continue home medications PCP: Ashwin DVT ppx: SCD GI ppx: omeprazole Diet: HH, fluid restrict Code: DNR Dispo: obs, LOS likely <48 hrs Addendum - Attending - Attending Attestation Date/Time: 05/20/20 0160 I personally evaluated the patient and discussed the management with Dr. Lassiter. I agree with the History, Examination, Assessment and Plan documented above with any addition or exceptions noted below.
--- NOTE | 2020-05-20 07:00 | PRG ---
DATE OF SERVICE: SUBJECTIVE: The patient is postoperative day #1, status post removal of hardware and extension of her lumbar fusion at L5-S1. Following the surgery, she was transitioned to the Med/Surg floor, where her pain has been well controlled with p.o. medications. She is tolerating a regular diet, and she is voiding appropriately. She had a LUCAS drain placed intraoperatively and had only had 10 mL out over the first night. She worked with PT yesterday and reports she is walking well short distance in her room with a walker. PT has recommended inpatient rehabilitation at discharge. OBJECTIVE: GENERAL: On exam this morning, she is awake, alert, no acute distress. VITAL SIGNS: Stable. SKIN: Incision is clean, dry, and intact. MUSCULOSKELETAL: She has free active range of motion of all extremities and no focal motor weakness. : There is a tiny amount of serosanguineous fluid in the LUCAS bulb. PLAN: We will plan to remove her LUCAS drain. We feel that she would be best served by inpatient rehabilitation as well following discharge. I will talk to Case Management in [facility]. If accepted, she may be able to transition to rehab later today. Job ID: [id number]
[2020-05-20] MEDS: Famotidine 20 MG TAB PO SCH (08:17)
[2020-05-20] MEDS: Furosemide 20 MG TAB PO SCH (08:18)
[2020-05-20] MEDS: Clindamycin 150 MG CAP PO SCH ×4 (08:18→20:13)
[2020-05-20] MEDS: HYDROcodone/Acetaminophen 10/325 mg Tablet PO PRN ×4 (08:18→21:23)
[2020-05-20] MEDS: Donepezil HCl 5 MG TAB PO SCH (08:19)
[2020-05-20] MEDS: Multivit, Therapeutic 1 TAB PO SCH (08:19)
[2020-05-20] MEDS ORDERED: CALCIUM CARBONATE PO SCH ×2 (09:00)
[2020-05-20] MEDS ORDERED: Donepezil HCl 5 MG TAB PO SCH (09:00)
[2020-05-20] MEDS ORDERED: metroNIDAZOLE 500 MG TAB PO SCH (09:00)
[2020-05-20] MEDS ORDERED: Amlodipine 5 MG TAB PO SCH (09:00)
[2020-05-20] MEDS ORDERED: Losartan 25 MG TAB PO SCH (09:00)
[2020-05-20] MEDS ORDERED: BIOTIN PO SCH ×2 (09:00)
[2020-05-20] MEDS ORDERED: Non-Formulary Item 1 EACH (Multivitamin [Multi-Vitamin Daily] 1 TABLET) PO SCH (09:00)
[2020-05-20] MEDS ORDERED: Non-Formulary Item 1 EACH (Losartan Potassium [Losartan Potassium] 100 MG) PO SCH (09:00)
[2020-05-20] MEDS ORDERED: Levothyroxine Sodium 112 MCG TAB PO SCH (09:00)
[2020-05-20] MEDS: Sodium Chloride 0.9% 1,000 ML IV SCH (10:19)
[2020-05-20 10:20] LABS: #Lymphocytes 1.6 thou/uL (1.20-3.40); #Monocytes 1.5 thou/uL (0.11-0.59); #Neutrophils 8.2 thou/uL (1.40-6.50); %Basophils 0.1 % (0.0-1.0); %Eosinophils 0.3 % (0.0-10.0); %Lymphocytes 13.8 % (21.0-51.0); %Monocytes 13.4 % (0.0-10.0); %Neutrophils 72.4 % (42.0-75.0); Hemoglobin 9.8 g/dL (12.0-16.0); Mean Corpuscular HGB CONC 31.8 g/dL (32.0-36.0); Mean Corpuscular Hemoglobin 30.3 pg (27.0-31.0); Mean Corpuscular Volume 95.4 fL (78.0-98.0); Mean Platelet Volume 8.1 fL (7.4-10.4); Platelet Count 279 thou/uL (130-400); Red Blood Cell (RBC) Count 3.22 mill/uL (4.20-5.40); White Blood Cell (WBC) Count 11.3 thou/uL (4.8-10.8)
[2020-05-20 10:47] LABS: Anion Gap 18 mmol/L (10-20); BUN (Urea Nitrogen) 36 mg/dL (9.8-20.1); Calc. Creatinine Clearance 49 mL/min (70-130); Calcium 8.6 mg/dL (7.8-10.44); Carbon Dioxide 18 mmol/L (23-31); Chloride 108 mmol/L (98-107); Estimated GFR-MDRD 41; Glucose 104 mg/dL (83-110); Potassium 4.7 mmol/L (3.5-5.1); Sodium 139 mmol/L (136-145)
[2020-05-20] MEDS: Simvastatin 10 MG TAB PO SCH (20:14)
[2020-05-20] MEDS: Carvedilol 3.125 MG TAB PO SCH (20:15)
[2020-05-20] MEDS ORDERED: Carvedilol 3.125 MG TAB PO SCH (21:00)
[2020-05-20] MEDS ORDERED: Pravastatin Sodium 20 MG TAB PO SCH (21:00)
[2020-05-20] MEDS ORDERED: FAMOTIDINE PO SCH (21:00)
[2020-05-21] MEDS: Sodium Chloride 0.9% 1,000 ML IV SCH (02:27)
[2020-05-21] MEDS: HYDROcodone/Acetaminophen 10/325 mg Tablet PO PRN ×2 (03:59→08:32)
[2020-05-21] MEDS: Levothyroxine Sodium 112 MCG TAB PO SCH (05:45)
--- NOTE | 2020-05-21 07:22 | PDOC.FM ---
- Subjective Subjective: Pt feeling well this morning. Discussed her management of her chronic conditions and pt states she thinks she is doing very well. No concerns. Looking forward to working in rehab. - Objective Vital Signs & Weight: Vital Signs (12 hours) Temp Pulse Resp BP Pulse Ox 05/21/20 03:39 98.8 F 93 18 110/73 96 05/20/20 23:58 76 12 05/20/20 23:27 98 F 104 H 18 117/68 98 05/20/20 20:13 98 05/20/20 19:44 98.0 F 84 18 105/53 L 95 Weight Weight 76.793 kg I&O: 05/20/20 05/21/20 05/22/20 06:59 06:59 06:59 Intake Total 1685 Output Total 10 Balance -10 1685 Result Diagrams: 05/20/20 10:04 05/20/20 10:04 Phys Exam - Physical Examination Constitutional: NAD HEENT: moist MMs, sclera anicteric Hard of hearing Neck: full ROM Respiratory: clear to auscultation bilateral Cardiovascular: RRR Gastrointestinal: soft, non-tender Musculoskeletal: pulses present Neurological: non-focal, normal sensation, moves all 4 limbs Psychiatric: normal affect, A&O x 3 Dx/Plan - Plan Plan: S/p lumbar laminectomy with hardware removal -Dr. Garcia, 05/19 -Pain and radicular sx controlled -PT/OT consulted -Plan for discharge to [facility] rehab Hyperkalemia -chronic problem, 5.3 on admission to 4.7 COPD -continue home dulera -PRN duonebs HTN -continue home medication CKD -Cr at baseline diverticulitis -continue antibiotics, will clarify stop date with facility hypercholesterolemia -continue home statin hypothyroidism -TSH wnl GERD with esophagitis -continue home PPI Congestive Heart failure -strict I/os, fluid restrict 1800 ml/day -weight daily Psoriasis, osteoporosis, anemia, fecal incontinence, allergic rhinitis, raynauds , dementia, BPV, hx of falling -aware, continue home medications PCP: Ashwin DVT ppx: [facility] GI ppx: omeprazole Diet: HH, fluid restrict Code: DNR Dispo: obs, LOS likely <48 hrs Addendum - Attending - Attending Attestation Date/Time: 05/21/20 0447 I personally evaluated the patient and discussed the management with the team. I agree with the History, Examination, Assessment and Plan documented above with any addition or exceptions noted below. No cp/sob. No fever/chills. Pain is improving.
[2020-05-21] MEDS: Clindamycin 150 MG CAP PO SCH (08:31)
[2020-05-21] MEDS: Furosemide 20 MG TAB PO SCH (08:31)
[2020-05-21] MEDS: Famotidine 20 MG TAB PO SCH (08:31)
[2020-05-21] MEDS: Multivit, Therapeutic 1 TAB PO SCH (08:31)
[2020-05-21] MEDS: Donepezil HCl 5 MG TAB PO SCH (08:32)
--- NOTE | 2020-05-21 09:35 | PRG ---
DATE OF SERVICE: The patient is now postoperative day #2, status post removal of hardware and L5-S1 decompression and fusion. The patient has been doing quite well on the floor and her pain is very minimal. She has been ambulating short distances with the assistance of PT. She reports her left leg is feeling stronger. On exam this morning, she is awake, alert, in no acute distress. She has free active range of motion of all extremities. No focal motor weakness. Her incision is clean, dry, and intact. She is doing quite well and will benefit from inpatient rehab. Hopefully, she will be able to transition to there later today if a bed is available. Job ID: [id number]
[2020-05-21 12:17] VITALS: BP 95/66; TEMP 98.2
== END 2020-05-21 14:37 | DRG 460 ==
LOC: SURG A 05-19 05:58 → SJJU 05-19 11:25
PROVIDERS: ADMIT Neurological Surgery; ATTEND Neurological Surgery
PROC: 0SG1071 Fusion of 2 or more Lumbar Vertebral Joints with Autologous Tissue Substitute, Posterior Approach, Posterior Column, Open Approach (ICD-10-PCS; principal; 2020-05-19)
PROC: 0SG3071 Fusion of Lumbosacral Joint with Autologous Tissue Substitute, Posterior Approach, Posterior Column, Open Approach (ICD-10-PCS; 2020-05-19)
PROC: 0SP004Z Removal of Internal Fixation Device from Lumbar Vertebral Joint, Open Approach (ICD-10-PCS; 2020-05-19)
DX: M54.16 Radiculopathy, lumbar region (principal); I13.0 Hypertensive heart and chronic kidney disease with heart failure and stage 1 through stage 4 chronic kidney disease, or unspecified chronic kidney disease; K57.92 Diverticulitis of intestine, part unspecified, without perforation or abscess without bleeding; J44.9 Chronic obstructive pulmonary disease, unspecified; N18.9 Chronic kidney disease, unspecified; E03.9 Hypothyroidism, unspecified; F41.9 Anxiety disorder, unspecified; E78.00 Pure hypercholesterolemia, unspecified; L40.50 Arthropathic psoriasis, unspecified; M54.30 Sciatica, unspecified side; D63.1 Anemia in chronic kidney disease; I50.9 Heart failure, unspecified; H81.10 Benign paroxysmal vertigo, unspecified ear; E87.5 Hyperkalemia; M81.0 Age-related osteoporosis without current pathological fracture; K21.0 Gastro-esophageal reflux disease with esophagitis; L40.9 Psoriasis, unspecified; R15.9 Full incontinence of feces; J30.9 Allergic rhinitis, unspecified; I73.00 Raynaud's syndrome without gangrene; F03.90 Unspecified dementia, unspecified severity, without behavioral disturbance, psychotic disturbance, mood disturbance, and anxiety; Z88.0 Allergy status to penicillin; Z88.8 Allergy status to other drugs, medicaments and biological substances; Z79.82 Long term (current) use of aspirin; Z90.49 Acquired absence of other specified parts of digestive tract; Z90.710 Acquired absence of both cervix and uterus; Z98.890 Other specified postprocedural states; Z87.891 Personal history of nicotine dependence; Z91.81 History of falling
CPT/HCPCS: 36415; 76000; 80048; 84443; 85025; 94640; C1713; C1768; J1100; J1956; J2250; J2270; J2405; J2704; J3010; J3370; J3490; J7620

== ENCOUNTER 2020-06-01 09:33 | Outpatient (CLI) | payer MEDICARE, MEDICAID ==
--- NOTE | 2020-06-01 10:29 | MRI ---
Exam: Brain MRI without contrast HISTORY: Headache. COMPARISON: 05/16/2002 FINDINGS: Calvarial marrow signal intensity: Appropriate T1 signal Gradient echo sequence: No hemorrhage Brain parenchyma: No mass, mass effect or midline shift. Brain volume, age-appropriate. Cortical morales-white matter differentiation: Preserved Restricted diffusion: Central arterial flow voids are maintained. Absent restricted diffusion White matter signal intensities: T2, FLAIR white matter hyperintensities due to chronic small vessel ischemic changes Sinuses: Adequate aeration of the paranasal sinuses and mastoid air cells. IMPRESSION: 1. No acute intracranial process 2. Absent restricted diffusion. No acute infarct 3. Age-appropriate atrophy. There are chronic small vessel ischemic changes of the white matter.
== END 2020-06-01 09:34 | disposition home or self-care (01) ==
LOC: MRI 09:33 → EDSTATUS 10:00
PROVIDERS: ATTEND Physical Medicine & Rehabilitation
DX: H54.7 Unspecified visual loss (principal); I67.82 Cerebral ischemia; Z98.890 Other specified postprocedural states
CPT/HCPCS: 70551

== ENCOUNTER 2020-06-02 08:38 | Outpatient (CLI) | payer MEDICARE, MEDICAID ==
--- NOTE | 2020-06-02 10:52 | RAD ---
LUMBAR SPINE 2 VIEWS: HISTORY: M54.16, lumbar radiculopathy. COMPARISON: Comparison with CT examination 01/19/2020. FINDINGS: Posterior spinal fusion hardware L3-S1 without hardware complication. Diskectomy change in cage at L 3-4. Laminectomy change. Postsurgical changes right upper quadrant in the abdomen. No acute fracture. 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 IMPRESSION: Satisfactory appearance without hardware complication. POS: HOME
== END 2020-06-02 08:39 | disposition home or self-care (01) ==
LOC: TBSIIMAG 08:38
PROVIDERS: ATTEND Neurological Surgery
DX: M54.16 Radiculopathy, lumbar region (principal)
CPT/HCPCS: 72100

== ENCOUNTER 2020-07-19 09:57 | Outpatient (CLI) | payer MEDICARE, MEDICAID ==
--- NOTE | 2020-07-19 11:26 | RAD ---
LUMBAR SPINE 2 VIEWS: Date: 07/19/2020 HISTORY: Lumbar radiculopathy. COMPARISON: 06/02/2020. FINDINGS: Postoperative laminectomy and pedicle screw placement changes at L3, L4, L5, and S1 with intradiscal prosthesis at L3-L4, with fairly marked narrowing at L5-S1. Heterogeneous bone demineralization. Stab le appearance from 06/02/2020 study. IMPRESSION: Stable postoperative changes lower lumbar spine. POS: [facility]RE
== END 2020-07-19 09:58 | disposition home or self-care (01) ==
LOC: SCSRAD 09:57
PROVIDERS: ATTEND Neurological Surgery
DX: M54.16 Radiculopathy, lumbar region (principal); Z98.890 Other specified postprocedural states
CPT/HCPCS: 72100

== ENCOUNTER 2021-06-14 12:25 | Outpatient (CLI) | payer MEDICARE, MEDICAID | END 2021-06-14 12:26 | disposition home or self-care (01) | LOC: BICRAD 12:25 | PROVIDERS: ATTEND Internal Medicine Pulmonary Disease | DX: R06.09 Other forms of dyspnea (principal) | CPT/HCPCS: 71046 ==

== ENCOUNTER 2022-07-23 12:01 | Emergency (ER) | payer MEDICARE, MEDICAID | END 2022-07-23 14:15 | disposition home or self-care (01) | LOC: ERS 12:01 | DX: M25.552 Pain in left hip (principal); M25.512 Pain in left shoulder; I25.10 Atherosclerotic heart disease of native coronary artery without angina pectoris; E03.9 Hypothyroidism, unspecified; E78.00 Pure hypercholesterolemia, unspecified; I10 Essential (primary) hypertension; J44.9 Chronic obstructive pulmonary disease, unspecified; Z87.891 Personal history of nicotine dependence; Z79.899 Other long term (current) drug therapy; Z79.82 Long term (current) use of aspirin ==

== ENCOUNTER 2023-02-23 14:34 | Outpatient (CLI) | payer MEDICARE, OTHER | END 2023-02-23 14:35 | disposition home or self-care (01) | LOC: SCSRAD 14:34 | PROVIDERS: ATTEND Family Medicine | DX: M25.551 Pain in right hip (principal); M25.552 Pain in left hip; M47.26 Other spondylosis with radiculopathy, lumbar region; Z98.890 Other specified postprocedural states | CPT/HCPCS: 72100 ==

== ENCOUNTER 2023-03-01 13:57 | Outpatient (CLI) | payer MEDICARE, OTHER | END 2023-03-01 13:58 | disposition home or self-care (01) | LOC: SCSRAD 13:57 | PROVIDERS: ATTEND Family Medicine | DX: R07.81 Pleurodynia (principal); R07.82 Intercostal pain; S22.41XA Multiple fractures of ribs, right side, initial encounter for closed fracture | CPT/HCPCS: 71046 ==

== ENCOUNTER 2023-05-22 14:44 | Inpatient (IN) | payer MEDICARE, MEDICAID ==
[2023-05-22 15:08] LABS: #Basophils 0.1 thou/uL (0.0-0.2); #Monocytes 1.5 thou/uL (0.11-0.59); #Neutrophils 12.9 thou/uL (1.40-6.50); %Basophils 0.5 % (0.0-1.0); %Eosinophils 0.1 % (0.0-10.0); %Monocytes 9.4 % (0.0-10.0); %Neutrophils 79.2 % (42.0-75.0); Hematocrit 28.3 % (36.0-47.0); Hemoglobin 8.4 g/dL (12.0-16.0); Mean Corpuscular HGB CONC 29.7 g/dL (32.0-36.0); Mean Corpuscular Hemoglobin 29.2 pg (27.0-31.0); Mean Corpuscular Volume 98.3 fl (78.0-98.0); Mean Platelet Volume 10.4 fL (7.4-10.4); Platelet Count 226 10x3/uL (130-400); RBC Distribution Width 15.5 % (11.5-14.5); Red Blood Cell (RBC) Count 2.88 mill/uL (4.20-5.40); White Blood Cell (WBC) Count 16.3 10x3/uL (4.8-10.8)
[2023-05-22 15:31] LABS: ALT (SGPT) 13 U/L (8-55); AST (SGOT) 21 U/L (5-34); Albumin 3.4 g/dL (3.4-4.8); Alkaline Phosphatase 33 U/L (40-110); Anion Gap 14 mmol/L (10-20); BUN (Urea Nitrogen) 30 mg/dL (9.8-20.1); Bilirubin, Total 0.4 mg/dL (0.2-1.2); Calc. Creatinine Clearance 0 mL/min (70-130); Calcium 9.5 mg/dL (7.8-10.44); Carbon Dioxide 16 mmol/L (23-31); Chloride 115 mmol/L (98-107); Estimated GFR 33; Glucose 186 mg/dL (83-110); Potassium 4.6 mmol/L (3.5-5.1); Protein, Total 5.4 g/dL (5.8-8.1); Sodium 140 mmol/L (136-145)
[2023-05-22 15:35] LABS: Troponin I 0.083 ng/mL (< 0.028)
[2023-05-22] MEDS ORDERED: Senokot S 8.6-50 MG TAB PO PRN (16:49)
[2023-05-22] MEDS ORDERED: Calcium Carbonate 500 MG ChewTAB PO PRN (16:49)
[2023-05-22] MEDS ORDERED: Ondansetron PF 4 MG/2 ML Vial IVP PRN (16:49)
[2023-05-22] MEDS ORDERED: Sodium Chloride 0.9% 1,000 ML IV SCH (17:00)
[2023-05-22] MEDS: traZODone HCl 50 MG TAB PO SCH (23:08)
[2023-05-22] MEDS: Lactated Ringer's 1,000 ML IV SCH (23:08)
[2023-05-22] MEDS: Famotidine 20 MG TAB PO SCH (23:08)
[2023-05-22] MEDS: Simvastatin 10 MG TAB PO SCH (23:08)
[2023-05-22 23:37] VITALS: BMI 26.8
[2023-05-22 23:38] LABS: Hematocrit 25.2 % (36.0-47.0); Hemoglobin 7.6 g/dL (12.0-16.0)
[2023-05-23 00:15] LABS: Troponin I 0.972 ng/mL (< 0.028)
[2023-05-23 05:16] LABS: #Basophils 0.1 thou/uL (0.0-0.2); #Eosinphils 0.1 thou/uL (0.0-0.7); #Monocytes 1.3 thou/uL (0.11-0.59); #Neutrophils 10.5 thou/uL (1.40-6.50); %Basophils 0.4 % (0.0-1.0); %Eosinophils 0.5 % (0.0-10.0); %Monocytes 9.5 % (0.0-10.0); %Neutrophils 79.6 % (42.0-75.0); Hematocrit 23.4 % (36.0-47.0); Hemoglobin 7.1 g/dL (12.0-16.0); Mean Corpuscular HGB CONC 30.3 g/dL (32.0-36.0); Mean Corpuscular Hemoglobin 29.5 pg (27.0-31.0); Mean Corpuscular Volume 97.1 fl (78.0-98.0); Mean Platelet Volume 10.6 fL (7.4-10.4); Platelet Count 200 10x3/uL (130-400); RBC Distribution Width 15.7 % (11.5-14.5); Red Blood Cell (RBC) Count 2.41 mill/uL (4.20-5.40); White Blood Cell (WBC) Count 13.2 10x3/uL (4.8-10.8)
[2023-05-23 05:47] LABS: ALT (SGPT) 16 U/L (8-55); AST (SGOT) 27 U/L (5-34); Albumin 3.7 g/dL (3.4-4.8); Alkaline Phosphatase 40 U/L (40-110); Anion Gap 14 mmol/L (10-20); BUN (Urea Nitrogen) 28 mg/dL (9.8-20.1); Bilirubin, Total 0.4 mg/dL (0.2-1.2); Calc. Creatinine Clearance 31 mL/min (70-130); Calcium 9.7 mg/dL (7.8-10.44); Carbon Dioxide 18 mmol/L (23-31); Chloride 114 mmol/L (98-107); Estimated GFR 34; Globulin 2.2 g/dL (2.4-3.5); Glucose 130 mg/dL (83-110); Potassium 3.9 mmol/L (3.5-5.1); Protein, Total 5.9 g/dL (5.8-8.1); Sodium 142 mmol/L (136-145)
[2023-05-23 05:51] LABS: Critical Call Chem Troponin I RESULT DECREASING; Troponin I 0.832 ng/mL (< 0.028)
[2023-05-23] MEDS: Lactated Ringer's 1,000 ML IV SCH (06:51)
[2023-05-23] MEDS: Levothyroxine Sodium 112 MCG TAB PO SCH (09:10)
[2023-05-23] MEDS ORDERED: Metamucil PACK PO PRN (17:51)
[2023-05-23] MEDS ORDERED: Polyvinyl Alcohol 1.4%/Povidone 0.6% Opth Drops EA EYE PRN (17:51)
[2023-05-23] MEDS: Ipratropium/Albuterol 3 ML NEB NEB SCH ×2 (19:39→23:41)
[2023-05-23] MEDS: Famotidine 20 MG TAB PO SCH (20:27)
[2023-05-23] MEDS: Simvastatin 10 MG TAB PO SCH (20:27)
[2023-05-23] MEDS: traZODone HCl 50 MG TAB PO SCH (20:28)
[2023-05-24] MEDS: Acetaminophen 325 MG TAB PO PRN ×3 (00:08→20:30)
[2023-05-24] MEDS: Ipratropium/Albuterol 3 ML NEB NEB SCH ×4 (07:16→23:27)
[2023-05-24 07:57] LABS: #Basophils 0.1 thou/uL (0.0-0.2); #Eosinphils 0.1 thou/uL (0.0-0.7); #Monocytes 1.3 thou/uL (0.11-0.59); #Neutrophils 8.9 thou/uL (1.40-6.50); %Basophils 0.5 % (0.0-1.0); %Eosinophils 0.6 % (0.0-10.0); %Lymphocytes 25.3 % (21.0-51.0); %Monocytes 9.5 % (0.0-10.0); %Neutrophils 63.3 % (42.0-75.0); Mean Corpuscular HGB CONC 33.4 g/dL (32.0-36.0); Mean Corpuscular Volume 92.6 fl (78.0-98.0); Mean Platelet Volume 10.3 fL (7.4-10.4); Platelet Count 149 10x3/uL (130-400); Red Blood Cell (RBC) Count 3.52 mill/uL (4.20-5.40)
[2023-05-24 08:01] LABS: Hematocrit 32.6 % (36.0-47.0); Hemoglobin 10.9 g/dL (12.0-16.0)
[2023-05-24 08:24] LABS: Anion Gap 12 mmol/L (10-20); BUN (Urea Nitrogen) 24 mg/dL (9.8-20.1); Calc. Creatinine Clearance 30 mL/min (70-130); Calcium 9.3 mg/dL (7.8-10.44); Carbon Dioxide 21 mmol/L (23-31); Chloride 112 mmol/L (98-107); Estimated GFR 33; Glucose 127 mg/dL (83-110); Potassium 3.5 mmol/L (3.5-5.1); Sodium 141 mmol/L (136-145)
[2023-05-24] MEDS: Calcium Carbonate 600 MG + Vit D TAB PO SCH (09:44)
[2023-05-24] MEDS: Levothyroxine Sodium 112 MCG TAB PO SCH (09:44)
[2023-05-24] MEDS: methylPREDNISolone 4 mg Tablet PO SCH (09:44)
[2023-05-24] MEDS: Loratadine 10 MG TAB PO SCH (09:44)
[2023-05-24] MEDS: Calcitriol 0.25 MCG CAP PO SCH (09:44)
[2023-05-24] MEDS: Amlodipine 5 MG TAB PO SCH (09:44)
[2023-05-24] MEDS: Multivitamin W/ Minerals 1 TAB PO SCH (09:44)
[2023-05-24 12:26] LABS: Bacteria/HPF None Seen HPF (None Seen); Bilirubin Negative (Negative); Blood, Urine 1+ (Negative); Clarity Clear (Clear); Glucose, Urine (Dipstick) 200 mg/dL (Negative); Ketone, Urine Negative (Negative); Leukocyte Negative Leu/uL (Negative); Nitrite Negative (Negative); Protein, Urine (Dipstick) 50 mg/dL (Neg-Trace); RBC/HPF 0-3 HPF (0-3); Specific Gravity, Urine 1.025 (1.002-1.036); Squamous Epithelial 0-3 HPF (0-3); Urobilinogen Normal mg/dL (Less than 2); WBC/HPF 0-3 HPF (0-3)
[2023-05-24] MEDS: Fluticasone Propionate Nasal Spray 16 gm Bottle NASAL SCH (13:59)
[2023-05-24] MEDS: Famotidine 20 MG TAB PO SCH (19:34)
[2023-05-24] MEDS: Simvastatin 10 MG TAB PO SCH (19:35)
[2023-05-24] MEDS: traZODone HCl 50 MG TAB PO SCH (19:35)
[2023-05-24] MEDS: Benzonatate 100 MG CAP PO PRN (20:31)
[2023-05-24] MEDS: Benzocaine/Menthol 1 LOZ LOZ PO PRN (20:48)
[2023-05-25] MEDS: Ipratropium/Albuterol 3 ML NEB NEB SCH ×4 (07:11→23:53)
[2023-05-25] MEDS: Calcium Carbonate 600 MG + Vit D TAB PO SCH (08:32)
[2023-05-25] MEDS: Calcitriol 0.25 MCG CAP PO SCH (08:32)
[2023-05-25] MEDS: Amlodipine 5 MG TAB PO SCH (08:32)
[2023-05-25] MEDS: Loratadine 10 MG TAB PO SCH (08:32)
[2023-05-25] MEDS: Fluticasone Propionate Nasal Spray 16 gm Bottle NASAL SCH (08:32)
[2023-05-25] MEDS: methylPREDNISolone 4 mg Tablet PO SCH (08:32)
[2023-05-25] MEDS: Multivitamin W/ Minerals 1 TAB PO SCH (08:32)
[2023-05-25] MEDS: Levothyroxine Sodium 112 MCG TAB PO SCH (08:32)
[2023-05-25] MEDS: Benzocaine/Menthol 1 LOZ LOZ PO PRN (15:51)
[2023-05-25] MEDS: traMADol HCl 50 MG TAB PO PRN (15:51)
[2023-05-25] MEDS: Simvastatin 10 MG TAB PO SCH (20:14)
[2023-05-25] MEDS: traZODone HCl 50 MG TAB PO SCH (20:14)
[2023-05-25] MEDS: Famotidine 20 MG TAB PO SCH (20:14)
[2023-05-26 05:38] LABS: #Basophils 0.1 thou/uL (0.0-0.2); #Eosinphils 0.1 thou/uL (0.0-0.7); #Neutrophils 6.1 thou/uL (1.40-6.50); %Basophils 0.5 % (0.0-1.0); %Eosinophils 1.5 % (0.0-10.0); %Lymphocytes 20.3 % (21.0-51.0); %Monocytes 10.5 % (0.0-10.0); %Neutrophils 65.5 % (42.0-75.0); Hematocrit 30.4 % (36.0-47.0); Hemoglobin 9.7 g/dL (12.0-16.0); Mean Corpuscular HGB CONC 31.9 g/dL (32.0-36.0); Mean Corpuscular Hemoglobin 30.5 pg (27.0-31.0); Mean Corpuscular Volume 95.6 fl (78.0-98.0); Mean Platelet Volume 10.4 fL (7.4-10.4); Platelet Count 154 10x3/uL (130-400); RBC Distribution Width 15.3 % (11.5-14.5); Red Blood Cell (RBC) Count 3.18 mill/uL (4.20-5.40); White Blood Cell (WBC) Count 9.3 10x3/uL (4.8-10.8)
[2023-05-26] MEDS: Ipratropium/Albuterol 3 ML NEB NEB SCH ×3 (08:04→19:01)
[2023-05-26] MEDS: Loratadine 10 MG TAB PO SCH (08:38)
[2023-05-26] MEDS: Calcium Carbonate 600 MG + Vit D TAB PO SCH (08:38)
[2023-05-26] MEDS: methylPREDNISolone 4 mg Tablet PO SCH (08:38)
[2023-05-26] MEDS: Levothyroxine Sodium 112 MCG TAB PO SCH (08:38)
[2023-05-26] MEDS: Fluticasone Propionate Nasal Spray 16 gm Bottle NASAL SCH (08:38)
[2023-05-26] MEDS: Amlodipine 5 MG TAB PO SCH (08:38)
[2023-05-26] MEDS: Calcitriol 0.25 MCG CAP PO SCH (08:38)
[2023-05-26] MEDS: Multivitamin W/ Minerals 1 TAB PO SCH (08:38)
[2023-05-26] MEDS: traMADol HCl 50 MG TAB PO PRN ×2 (08:46→20:19)
[2023-05-26] MEDS: Benzonatate 100 MG CAP PO PRN (08:46)
[2023-05-26] MEDS: Benzocaine/Menthol 1 LOZ LOZ PO PRN (14:00)
[2023-05-26] MEDS: Simvastatin 10 MG TAB PO SCH (20:18)
[2023-05-26] MEDS: Famotidine 20 MG TAB PO SCH (20:18)
[2023-05-26] MEDS: traZODone HCl 50 MG TAB PO SCH (20:18)
[2023-05-26] MEDS: Acetaminophen 325 MG TAB PO PRN (20:18)
[2023-05-27] MEDS: Ipratropium/Albuterol 3 ML NEB NEB SCH ×5 (01:02→19:26)
[2023-05-27 04:56] LABS: #Basophils 0.1 thou/uL (0.0-0.2); #Eosinphils 0.2 thou/uL (0.0-0.7); #Monocytes 0.9 thou/uL (0.11-0.59); #Neutrophils 3.9 thou/uL (1.40-6.50); %Basophils 0.7 % (0.0-1.0); %Eosinophils 2.2 % (0.0-10.0); %Lymphocytes 28.3 % (21.0-51.0); %Monocytes 12.3 % (0.0-10.0); %Neutrophils 54.8 % (42.0-75.0); Hematocrit 32.6 % (36.0-47.0); Hemoglobin 10.3 g/dL (12.0-16.0); Mean Corpuscular HGB CONC 31.6 g/dL (32.0-36.0); Mean Corpuscular Hemoglobin 30.7 pg (27.0-31.0); Mean Corpuscular Volume 97.3 fl (78.0-98.0); Mean Platelet Volume 10.4 fL (7.4-10.4); Platelet Count 181 10x3/uL (130-400); RBC Distribution Width 15.5 % (11.5-14.5); Red Blood Cell (RBC) Count 3.35 mill/uL (4.20-5.40); White Blood Cell (WBC) Count 7.2 10x3/uL (4.8-10.8)
[2023-05-27 05:19] LABS: Anion Gap 13 mmol/L (10-20); BUN (Urea Nitrogen) 26 mg/dL (9.8-20.1); Calc. Creatinine Clearance 32 mL/min (70-130); Calcium 9.7 mg/dL (7.8-10.44); Carbon Dioxide 21 mmol/L (23-31); Chloride 110 mmol/L (98-107); Estimated GFR 35; Glucose 88 mg/dL (83-110); Potassium 4.1 mmol/L (3.5-5.1); Sodium 140 mmol/L (136-145)
[2023-05-27] MEDS: Aspirin 81 mg Enteric Coated Tablet PO SCH (08:53)
[2023-05-27] MEDS: Amlodipine 5 MG TAB PO SCH (08:53)
[2023-05-27] MEDS: Levothyroxine Sodium 112 MCG TAB PO SCH (08:53)
[2023-05-27] MEDS: Loratadine 10 MG TAB PO SCH (08:53)
[2023-05-27] MEDS: methylPREDNISolone 4 mg Tablet PO SCH (08:53)
[2023-05-27] MEDS: Calcium Carbonate 600 MG + Vit D TAB PO SCH (08:53)
[2023-05-27] MEDS: Multivitamin W/ Minerals 1 TAB PO SCH (08:53)
[2023-05-27] MEDS: Calcitriol 0.25 MCG CAP PO SCH (08:53)
[2023-05-27] MEDS: Fluticasone Propionate Nasal Spray 16 gm Bottle NASAL SCH (08:53)
[2023-05-27] MEDS: Benzocaine/Menthol 1 LOZ LOZ PO PRN (08:58)
[2023-05-27] MEDS: traMADol HCl 50 MG TAB PO PRN ×2 (15:22→21:08)
[2023-05-27] MEDS: Famotidine 20 MG TAB PO SCH (21:07)
[2023-05-27] MEDS: traZODone HCl 50 MG TAB PO SCH (21:08)
[2023-05-27] MEDS: Simvastatin 10 MG TAB PO SCH (21:08)
[2023-05-28] MEDS: Ipratropium/Albuterol 3 ML NEB NEB SCH ×3 (01:16→12:47)
[2023-05-28 08:06] VITALS: BP 126/59; TEMP 97
[2023-05-28] MEDS: Amlodipine 5 MG TAB PO SCH (09:55)
[2023-05-28] MEDS: Calcitriol 0.25 MCG CAP PO SCH (09:55)
[2023-05-28] MEDS: Multivitamin W/ Minerals 1 TAB PO SCH (09:55)
[2023-05-28] MEDS: Calcium Carbonate 600 MG + Vit D TAB PO SCH (09:55)
[2023-05-28] MEDS: Loratadine 10 MG TAB PO SCH (09:55)
[2023-05-28] MEDS: Levothyroxine Sodium 112 MCG TAB PO SCH (09:55)
[2023-05-28] MEDS: Aspirin 81 mg Enteric Coated Tablet PO SCH (09:55)
[2023-05-28] MEDS: Fluticasone Propionate Nasal Spray 16 gm Bottle NASAL SCH (09:56)
[2023-05-28] MEDS: methylPREDNISolone 4 mg Tablet PO SCH (09:56)
== END 2023-05-28 14:20 | DRG 919 ==
LOC: SUATTDRO 14:44 → ERS 14:44 → 2NO 16:54 → OBSVTOIN 05-23 16:11
PROVIDERS: ADMIT Internal Medicine; ATTEND Internal Medicine Critical Care Medicine
PROC: 30233N1 Transfusion of Nonautologous Red Blood Cells into Peripheral Vein, Percutaneous Approach (ICD-10-PCS; principal; 2023-05-23)
DX: I97.630 Postprocedural hematoma of a circulatory system organ or structure following a cardiac catheterization (principal); I21.A1 Myocardial infarction type 2; I13.0 Hypertensive heart and chronic kidney disease with heart failure and stage 1 through stage 4 chronic kidney disease, or unspecified chronic kidney disease; F03.90 Unspecified dementia, unspecified severity, without behavioral disturbance, psychotic disturbance, mood disturbance, and anxiety; K21.9 Gastro-esophageal reflux disease without esophagitis; D72.829 Elevated white blood cell count, unspecified; Z66 Do not resuscitate; E03.9 Hypothyroidism, unspecified; F41.9 Anxiety disorder, unspecified; J44.9 Chronic obstructive pulmonary disease, unspecified; E78.00 Pure hypercholesterolemia, unspecified; N18.30 Chronic kidney disease, stage 3 unspecified; I73.9 Peripheral vascular disease, unspecified; Y83.8 Other surgical procedures as the cause of abnormal reaction of the patient, or of later complication, without mention of misadventure at the time of the procedure; Z20.822 Contact with and (suspected) exposure to COVID-19; E78.5 Hyperlipidemia, unspecified; I50.9 Heart failure, unspecified; I25.10 Atherosclerotic heart disease of native coronary artery without angina pectoris; Z79.899 Other long term (current) drug therapy; Z79.82 Long term (current) use of aspirin; Z79.51 Long term (current) use of inhaled steroids; Z90.710 Acquired absence of both cervix and uterus; Z90.49 Acquired absence of other specified parts of digestive tract; Z98.890 Other specified postprocedural states; Z87.891 Personal history of nicotine dependence; Z88.8 Allergy status to other drugs, medicaments and biological substances; Z88.0 Allergy status to penicillin; Z79.890 Hormone replacement therapy; I95.81 Postprocedural hypotension
CPT/HCPCS: 36415; 36430; 71045; 76936; 80048; 80053; 81003; 81015; 84484; 85025; 86850; 86900; 86901; 87040; 87633; 87635; 93005; 93010; 94640; 96360; G0378; J7120; J7509; J7620; P9016

== ENCOUNTER 2023-08-09 13:33 | Inpatient (IN) | payer MEDICARE, MEDICAID ==
[2023-08-09 14:23] LABS: #Basophils 0.1 thou/uL (0.0-0.2); #Eosinphils 0.3 thou/uL (0.0-0.7); #Monocytes 1.3 thou/uL (0.11-0.59); #Neutrophils 4.3 thou/uL (1.40-6.50); %Basophils 0.9 % (0.0-1.0); %Eosinophils 3.4 % (0.0-10.0); %Lymphocytes 25.5 % (21.0-51.0); %Monocytes 16.3 % (0.0-10.0); %Neutrophils 52.2 % (42.0-75.0); Hematocrit 34.9 % (36.0-47.0); Hemoglobin 10.8 g/dL (12.0-16.0); Mean Corpuscular HGB CONC 30.9 g/dL (32.0-36.0); Mean Corpuscular Hemoglobin 28.7 pg (27.0-31.0); Mean Corpuscular Volume 92.8 fl (78.0-98.0); Mean Platelet Volume 10.1 fL (7.4-10.4); Platelet Count 340 10x3/uL (130-400); RBC Distribution Width 14.4 % (11.5-14.5); Red Blood Cell (RBC) Count 3.76 mill/uL (4.20-5.40); White Blood Cell (WBC) Count 8.2 10x3/uL (4.8-10.8)
[2023-08-09 14:37] LABS: PTT 23.1 sec (22.9-36.1); Prothrombin Time 13.6 sec (12.0-14.7)
[2023-08-09 14:46] LABS: ALT (SGPT) 12 U/L (8-55); AST (SGOT) 28 U/L (5-34); Albumin 3.8 g/dL (3.4-4.8); Alkaline Phosphatase 70 U/L (40-110); Anion Gap 15 mmol/L (10-20); BUN (Urea Nitrogen) 28 mg/dL (9.8-20.1); Bilirubin, Total 0.5 mg/dL (0.2-1.2); Calc. Creatinine Clearance 0 mL/min (70-130); Calcium 12.1 mg/dL (7.8-10.44); Carbon Dioxide 24 mmol/L (23-31); Chloride 105 mmol/L (98-107); Estimated GFR 18; Globulin 3.1 g/dL (2.4-3.5); Glucose 98 mg/dL (83-110); Potassium 4.5 mmol/L (3.5-5.1); Protein, Total 6.9 g/dL (5.8-8.1); Sodium 139 mmol/L (136-145)
[2023-08-09 14:47] LABS: Troponin I 0.033 ng/mL (< 0.028)
[2023-08-09] MEDS ORDERED: Morphine 2 MG/ML VIAL ONE (15:24)
[2023-08-09] MEDS ORDERED: Guaifenesin DM 100-10/5 ML UDCUP PO PRN (17:36)
[2023-08-09] MEDS ORDERED: Ondansetron ODT 4 MG TAB PO PRN (17:36)
[2023-08-09] MEDS ORDERED: Ondansetron PF 4 MG/2 ML Vial IVP PRN (17:36)
[2023-08-09] MEDS ORDERED: Senokot S 8.6-50 MG TAB PO PRN (17:36)
[2023-08-09] MEDS ORDERED: Acetaminophen 650 MG Suppository PR PRN (17:36)
[2023-08-09 18:02] LABS: Bacteria/HPF None Seen HPF (None Seen); Bilirubin Negative (Negative); Blood, Urine Negative (Negative); CAUTI Indications for Culture Alt mental st,lethar; Clarity Clear (Clear); Glucose, Urine (Dipstick) Normal (Negative); Ketone, Urine Negative (Negative); Leukocyte 75 Leu/uL (Negative); Nitrite Negative (Negative); Protein, Urine (Dipstick) 30 mg/dL (Neg-Trace); RBC/HPF 0-3 HPF (0-3); Specific Gravity, Urine 1.018 (1.002-1.036); Squamous Epithelial 0-3 HPF (0-3); Urobilinogen Normal mg/dL (Less than 2); pH, Urine 5.5 (5.0-9.0)
[2023-08-09 18:04] LABS: Urine Culture Reflex Yes Yes
[2023-08-09] MEDS: Ipratropium/Albuterol 3 ML NEB NEB SCH ×2 (19:21→23:32)
[2023-08-09] MEDS: traZODone HCl 50 MG TAB PO SCH (20:44)
[2023-08-09] MEDS: Simvastatin 10 MG TAB PO SCH (20:44)
[2023-08-09] MEDS: Melatonin 3 MG TAB PO SCH (20:44)
[2023-08-09] MEDS: Famotidine 20 MG TAB PO SCH (20:45)
[2023-08-10 04:25] LABS: #Basophils 0.1 thou/uL (0.0-0.2); #Eosinphils 0.3 thou/uL (0.0-0.7); #Monocytes 1.2 thou/uL (0.11-0.59); #Neutrophils 4.7 thou/uL (1.40-6.50); %Basophils 0.9 % (0.0-1.0); %Eosinophils 4.2 % (0.0-10.0); %Lymphocytes 21.2 % (21.0-51.0); %Monocytes 14.3 % (0.0-10.0); Hematocrit 29.7 % (36.0-47.0); Hemoglobin 9.3 g/dL (12.0-16.0); Mean Corpuscular HGB CONC 31.3 g/dL (32.0-36.0); Mean Corpuscular Hemoglobin 29.3 pg (27.0-31.0); Mean Corpuscular Volume 93.7 fl (78.0-98.0); Mean Platelet Volume 9.7 fL (7.4-10.4); Platelet Count 273 10x3/uL (130-400); RBC Distribution Width 14.3 % (11.5-14.5); Red Blood Cell (RBC) Count 3.17 mill/uL (4.20-5.40); White Blood Cell (WBC) Count 8.1 10x3/uL (4.8-10.8)
[2023-08-10 04:48] LABS: Anion Gap 11 mmol/L (10-20); BUN (Urea Nitrogen) 25 mg/dL (9.8-20.1); Calc. Creatinine Clearance 22 mL/min (70-130); Calcium 10.7 mg/dL (7.8-10.44); Carbon Dioxide 24 mmol/L (23-31); Chloride 109 mmol/L (98-107); Estimated GFR 23; Glucose 101 mg/dL (83-110); Potassium 3.8 mmol/L (3.5-5.1); Sodium 140 mmol/L (136-145)
[2023-08-10] MEDS: Levothyroxine Sodium 112 MCG TAB PO SCH (06:14)
[2023-08-10] MEDS: Ipratropium/Albuterol 3 ML NEB NEB SCH ×4 (07:26→23:55)
[2023-08-10] MEDS: Amlodipine 5 MG TAB PO SCH (09:43)
[2023-08-10] MEDS: Calcitriol 0.25 MCG CAP PO SCH (09:43)
[2023-08-10] MEDS: Aspirin 81 mg Enteric Coated Tablet PO SCH (09:43)
[2023-08-10] MEDS: Loratadine 10 MG TAB PO SCH (09:43)
[2023-08-10] MEDS: Multivitamin W/ Minerals 1 TAB PO SCH (09:44)
[2023-08-10] MEDS: Calcium Carbonate 600 MG + Vit D TAB PO SCH (09:44)
[2023-08-10] MEDS: Acetaminophen 325 MG TAB PO PRN (09:48)
[2023-08-10] MEDS: Fluticasone Propionate Nasal Spray 16 gm Bottle NASAL SCH (14:08)
[2023-08-10] MEDS: Dextrose 5% in Water 1,000 ML IV SCH (15:34)
[2023-08-10] MEDS: Famotidine 20 MG TAB PO SCH (22:13)
[2023-08-10] MEDS: Ciprofloxacin 500 MG TAB PO SCH (22:13)
[2023-08-10] MEDS: Melatonin 3 MG TAB PO SCH (22:14)
[2023-08-10] MEDS: Simvastatin 10 MG TAB PO SCH (22:15)
[2023-08-10] MEDS: traZODone HCl 50 MG TAB PO SCH (22:15)
[2023-08-11] MEDS: Levothyroxine Sodium 112 MCG TAB PO SCH (05:35)
[2023-08-11] MEDS: Ipratropium/Albuterol 3 ML NEB NEB SCH ×4 (07:11→23:53)
[2023-08-11 08:38] LABS: #Basophils 0.1 thou/uL (0.0-0.2); #Eosinphils 0.3 thou/uL (0.0-0.7); #Monocytes 1.4 thou/uL (0.11-0.59); #Neutrophils 6.7 thou/uL (1.40-6.50); %Basophils 0.6 % (0.0-1.0); %Eosinophils 2.6 % (0.0-10.0); %Lymphocytes 17.9 % (21.0-51.0); %Monocytes 13.6 % (0.0-10.0); %Neutrophils 64.3 % (42.0-75.0); Hematocrit 32.2 % (36.0-47.0); Mean Corpuscular HGB CONC 31.1 g/dL (32.0-36.0); Mean Corpuscular Hemoglobin 29.3 pg (27.0-31.0); Mean Corpuscular Volume 94.4 fl (78.0-98.0); Mean Platelet Volume 10.1 fL (7.4-10.4); Platelet Count 274 10x3/uL (130-400); RBC Distribution Width 14.1 % (11.5-14.5); Red Blood Cell (RBC) Count 3.41 mill/uL (4.20-5.40); White Blood Cell (WBC) Count 10.5 10x3/uL (4.8-10.8)
[2023-08-11 09:00] LABS: Anion Gap 13 mmol/L (10-20); BUN (Urea Nitrogen) 19 mg/dL (9.8-20.1); Calc. Creatinine Clearance 23 mL/min (70-130); Calcium 11.1 mg/dL (7.8-10.44); Carbon Dioxide 22 mmol/L (23-31); Chloride 107 mmol/L (98-107); Estimated GFR 25; Glucose 142 mg/dL (83-110); Sodium 138 mmol/L (136-145)
[2023-08-11] MEDS: Calcitriol 0.25 MCG CAP PO SCH (10:08)
[2023-08-11] MEDS: Loratadine 10 MG TAB PO SCH (10:08)
[2023-08-11] MEDS: Calcium Carbonate 600 MG + Vit D TAB PO SCH (10:08)
[2023-08-11] MEDS: Multivitamin W/ Minerals 1 TAB PO SCH (10:08)
[2023-08-11] MEDS: Aspirin 81 mg Enteric Coated Tablet PO SCH (10:08)
[2023-08-11] MEDS: Fluticasone Propionate Nasal Spray 16 gm Bottle NASAL SCH (10:08)
[2023-08-11] MEDS: Amlodipine 5 MG TAB PO SCH (10:08)
[2023-08-11] MEDS: Dextrose 5% in Water 1,000 ML IV SCH (14:40)
[2023-08-11] MEDS: traZODone HCl 50 MG TAB PO SCH (21:13)
[2023-08-11] MEDS: Famotidine 20 MG TAB PO SCH (21:13)
[2023-08-11] MEDS: Simvastatin 10 MG TAB PO SCH (21:13)
[2023-08-11] MEDS: Melatonin 3 MG TAB PO SCH (21:13)
[2023-08-11] MEDS: Ciprofloxacin 500 MG TAB PO SCH (21:13)
[2023-08-12] MEDS: Levothyroxine Sodium 112 MCG TAB PO SCH (05:23)
[2023-08-12 05:52] LABS: Anion Gap 13 mmol/L (10-20); BUN (Urea Nitrogen) 17 mg/dL (9.8-20.1); Calc. Creatinine Clearance 22 mL/min (70-130); Calcium 11.3 mg/dL (7.8-10.44); Carbon Dioxide 23 mmol/L (23-31); Chloride 106 mmol/L (98-107); Estimated GFR 24; Glucose 133 mg/dL (83-110); Potassium 3.9 mmol/L (3.5-5.1); Sodium 138 mmol/L (136-145)
[2023-08-12] MEDS: Ipratropium/Albuterol 3 ML NEB NEB SCH ×3 (06:57→18:41)
[2023-08-12] MEDS: Amlodipine 5 MG TAB PO SCH (08:44)
[2023-08-12] MEDS: Fluticasone Propionate Nasal Spray 16 gm Bottle NASAL SCH (08:44)
[2023-08-12] MEDS: Calcitriol 0.25 MCG CAP PO SCH (08:46)
[2023-08-12] MEDS: Aspirin 81 mg Enteric Coated Tablet PO SCH (08:46)
[2023-08-12] MEDS: Calcium Carbonate 600 MG + Vit D TAB PO SCH (08:46)
[2023-08-12] MEDS: Loratadine 10 MG TAB PO SCH (08:46)
[2023-08-12] MEDS: Multivitamin W/ Minerals 1 TAB PO SCH (08:46)
[2023-08-12] MEDS: Dextrose 5% in Water 1,000 ML IV SCH (08:49)
[2023-08-12] MEDS ORDERED: FLU VACC QS2023(65UP)/MF59C/PF 60 MCG/0.5 ML SYRINGE IM ONE (09:00)
[2023-08-12] MEDS: Acetaminophen 325 MG TAB PO PRN (14:33)
[2023-08-12] MEDS: traZODone HCl 50 MG TAB PO SCH (19:55)
[2023-08-12] MEDS: Ciprofloxacin 500 MG TAB PO SCH (19:56)
[2023-08-12] MEDS: Melatonin 3 MG TAB PO SCH (19:56)
[2023-08-12] MEDS: Simvastatin 10 MG TAB PO SCH (19:56)
[2023-08-12] MEDS: Famotidine 20 MG TAB PO SCH (19:56)
[2023-08-13] MEDS: Dextrose 5% in Water 1,000 ML IV SCH ×2 (00:32→20:24)
[2023-08-13] MEDS: Ipratropium/Albuterol 3 ML NEB NEB SCH ×5 (00:34→23:13)
[2023-08-13] MEDS: Levothyroxine Sodium 112 MCG TAB PO SCH (05:07)
[2023-08-13 05:18] LABS: Anion Gap 12 mmol/L (10-20); BUN (Urea Nitrogen) 21 mg/dL (9.8-20.1); Calc. Creatinine Clearance 20 mL/min (70-130); Calcium 12.3 mg/dL (7.8-10.44); Carbon Dioxide 25 mmol/L (23-31); Chloride 104 mmol/L (98-107); Estimated GFR 21; Glucose 123 mg/dL (83-110); Potassium 3.9 mmol/L (3.5-5.1); Sodium 137 mmol/L (136-145)
[2023-08-13] MEDS: Calcitriol 0.25 MCG CAP PO SCH (09:06)
[2023-08-13] MEDS: Aspirin 81 mg Enteric Coated Tablet PO SCH (09:06)
[2023-08-13] MEDS: Multivitamin W/ Minerals 1 TAB PO SCH (09:06)
[2023-08-13] MEDS: Loratadine 10 MG TAB PO SCH (09:06)
[2023-08-13] MEDS: Amlodipine 5 MG TAB PO SCH (09:06)
[2023-08-13] MEDS: Fluticasone Propionate Nasal Spray 16 gm Bottle NASAL SCH (09:06)
[2023-08-13 17:14] LABS: Creatinine, Urine 70.93 mg/dL (47-110)
[2023-08-13] MEDS: Melatonin 3 MG TAB PO SCH (20:24)
[2023-08-13] MEDS: Ciprofloxacin 500 MG TAB PO SCH (20:24)
[2023-08-13] MEDS: Famotidine 20 MG TAB PO SCH (20:24)
[2023-08-13] MEDS: Simvastatin 10 MG TAB PO SCH (20:24)
[2023-08-13] MEDS: traZODone HCl 50 MG TAB PO SCH (20:25)
[2023-08-14 04:42] LABS: Anion Gap 13 mmol/L (10-20); BUN (Urea Nitrogen) 23 mg/dL (9.8-20.1); Calc. Creatinine Clearance 18 mL/min (70-130); Calcium 12.1 mg/dL (7.8-10.44); Carbon Dioxide 25 mmol/L (23-31); Chloride 103 mmol/L (98-107); Estimated GFR 18; Glucose 124 mg/dL (83-110); Potassium 3.8 mmol/L (3.5-5.1); Sodium 137 mmol/L (136-145)
[2023-08-14] MEDS: Levothyroxine Sodium 112 MCG TAB PO SCH (06:13)
[2023-08-14] MEDS: Ipratropium/Albuterol 3 ML NEB NEB SCH ×4 (06:45→23:09)
[2023-08-14] MEDS: Aspirin 81 mg Enteric Coated Tablet PO SCH (09:50)
[2023-08-14] MEDS: Multivitamin W/ Minerals 1 TAB PO SCH (09:50)
[2023-08-14] MEDS: Amlodipine 5 MG TAB PO SCH (09:51)
[2023-08-14] MEDS: Fluticasone Propionate Nasal Spray 16 gm Bottle NASAL SCH (09:51)
[2023-08-14] MEDS: Albumin 25% 25 GM/100 ML BOT IVPB SCH ×3 (12:14→23:30)
[2023-08-14] MEDS: Sodium Chloride 0.9% 1,000 ML IV SCH (14:41)
[2023-08-14] MEDS: Simvastatin 10 MG TAB PO SCH (20:27)
[2023-08-14] MEDS: Famotidine 20 MG TAB PO SCH (20:27)
[2023-08-14] MEDS: traZODone HCl 50 MG TAB PO SCH (20:27)
[2023-08-14] MEDS: Melatonin 3 MG TAB PO SCH (20:27)
[2023-08-15] MEDS: Sodium Chloride 0.9% 1,000 ML IV SCH ×4 (04:22→23:59)
[2023-08-15] MEDS: Albumin 25% 25 GM/100 ML BOT IVPB SCH ×2 (05:01→09:38)
[2023-08-15 05:12] LABS: Anion Gap 15 mmol/L (10-20); BUN (Urea Nitrogen) 26 mg/dL (9.8-20.1); Calc. Creatinine Clearance 18 mL/min (70-130); Calcium 11.9 mg/dL (7.8-10.44); Carbon Dioxide 22 mmol/L (23-31); Chloride 106 mmol/L (98-107); Estimated GFR 19; Glucose 108 mg/dL (83-110); Potassium 3.7 mmol/L (3.5-5.1); Sodium 139 mmol/L (136-145)
[2023-08-15] MEDS: Levothyroxine Sodium 112 MCG TAB PO SCH (05:21)
[2023-08-15] MEDS: Ipratropium/Albuterol 3 ML NEB NEB SCH ×2 (07:48→13:59)
[2023-08-15 08:01] VITALS: BMI 25.2
[2023-08-15] MEDS: Multivitamin W/ Minerals 1 TAB PO SCH (09:37)
[2023-08-15] MEDS: Amlodipine 5 MG TAB PO SCH (09:37)
[2023-08-15] MEDS: Aspirin 81 mg Enteric Coated Tablet PO SCH (09:37)
[2023-08-15] MEDS: Loratadine 10 MG TAB PO SCH (09:37)
[2023-08-15] MEDS: Fluticasone Propionate Nasal Spray 16 gm Bottle NASAL SCH (09:37)
[2023-08-15] MEDS ORDERED: Ipratropium/Albuterol 3 ML NEB NEB PRN (13:51)
[2023-08-15] MEDS: traZODone HCl 50 MG TAB PO SCH (21:24)
[2023-08-15] MEDS: Melatonin 3 MG TAB PO SCH (21:24)
[2023-08-15] MEDS: Famotidine 20 MG TAB PO SCH (21:25)
[2023-08-15] MEDS: Simvastatin 10 MG TAB PO SCH (21:25)
[2023-08-16] MEDS: Levothyroxine Sodium 112 MCG TAB PO SCH (05:32)
[2023-08-16 06:14] LABS: #Basophils 0.1 thou/uL (0.0-0.2); #Eosinphils 0.4 thou/uL (0.0-0.7); #Monocytes 1.3 thou/uL (0.11-0.59); #Neutrophils 3.8 thou/uL (1.40-6.50); %Eosinophils 5.7 % (0.0-10.0); %Lymphocytes 20.6 % (21.0-51.0); %Monocytes 18.2 % (0.0-10.0); %Neutrophils 52.7 % (42.0-75.0); Hematocrit 28.7 % (36.0-47.0); Hemoglobin 8.9 g/dL (12.0-16.0); Mean Corpuscular Hemoglobin 28.6 pg (27.0-31.0); Mean Corpuscular Volume 92.3 fl (78.0-98.0); Platelet Count 312 10x3/uL (130-400); RBC Distribution Width 14.2 % (11.5-14.5); Red Blood Cell (RBC) Count 3.11 mill/uL (4.20-5.40); White Blood Cell (WBC) Count 7.2 10x3/uL (4.8-10.8)
[2023-08-16 06:25] LABS: Anion Gap 14 mmol/L (10-20); BUN (Urea Nitrogen) 24 mg/dL (9.8-20.1); Calc. Creatinine Clearance 20 mL/min (70-130); Carbon Dioxide 21 mmol/L (23-31); Chloride 111 mmol/L (98-107); Estimated GFR 21; Glucose 93 mg/dL (83-110); Potassium 3.5 mmol/L (3.5-5.1); Sodium 142 mmol/L (136-145)
[2023-08-16] MEDS: Amlodipine 5 MG TAB PO SCH (09:19)
[2023-08-16] MEDS: Aspirin 81 mg Enteric Coated Tablet PO SCH (09:19)
[2023-08-16] MEDS: Multivitamin W/ Minerals 1 TAB PO SCH (09:19)
[2023-08-16] MEDS: Fluticasone Propionate Nasal Spray 16 gm Bottle NASAL SCH (10:02)
[2023-08-16] MEDS: Sodium Chloride 0.9% 1,000 ML IV SCH ×2 (10:09→19:42)
[2023-08-16] MEDS: Melatonin 3 MG TAB PO SCH (20:26)
[2023-08-16] MEDS: traZODone HCl 50 MG TAB PO SCH (20:26)
[2023-08-16] MEDS: Famotidine 20 MG TAB PO SCH (20:28)
[2023-08-16] MEDS: Simvastatin 10 MG TAB PO SCH (20:28)
[2023-08-17] MEDS: Levothyroxine Sodium 112 MCG TAB PO SCH (05:38)
[2023-08-17 06:37] LABS: Anion Gap 15 mmol/L (10-20); BUN (Urea Nitrogen) 21 mg/dL (9.8-20.1); Calc. Creatinine Clearance 23 mL/min (70-130); Calcium 11.5 mg/dL (7.8-10.44); Carbon Dioxide 21 mmol/L (23-31); Chloride 111 mmol/L (98-107); Estimated GFR 25; Glucose 94 mg/dL (83-110); Potassium 3.7 mmol/L (3.5-5.1); Sodium 143 mmol/L (136-145)
[2023-08-17 08:03] VITALS: TEMP 97.8
[2023-08-17] MEDS: Amlodipine 5 MG TAB PO SCH (09:05)
[2023-08-17] MEDS: Multivitamin W/ Minerals 1 TAB PO SCH (09:06)
[2023-08-17] MEDS: Fluticasone Propionate Nasal Spray 16 gm Bottle NASAL SCH (09:06)
[2023-08-17] MEDS: Loratadine 10 MG TAB PO SCH (09:06)
[2023-08-17] MEDS: Sodium Chloride 0.9% 1,000 ML IV SCH (09:06)
[2023-08-17] MEDS: Aspirin 81 mg Enteric Coated Tablet PO SCH (09:06)
[2023-08-17 12:15] VITALS: BP 131/74
== END 2023-08-17 15:39 | DRG 682 ==
LOC: ERS 13:33 → 2NO 17:36 → OBSVTOIN 08-10 15:53 → T4-A 08-15 13:47
PROVIDERS: ADMIT Emergency Medicine; ATTEND Internal Medicine
PROC: 30233J1 Transfusion of Nonautologous Serum Albumin into Peripheral Vein, Percutaneous Approach (ICD-10-PCS; principal; 2023-08-14)
DX: N17.9 Acute kidney failure, unspecified (principal); G93.41 Metabolic encephalopathy; I50.32 Chronic diastolic (congestive) heart failure; N30.00 Acute cystitis without hematuria; I13.0 Hypertensive heart and chronic kidney disease with heart failure and stage 1 through stage 4 chronic kidney disease, or unspecified chronic kidney disease; N18.4 Chronic kidney disease, stage 4 (severe); F03.90 Unspecified dementia, unspecified severity, without behavioral disturbance, psychotic disturbance, mood disturbance, and anxiety; I73.9 Peripheral vascular disease, unspecified; J44.9 Chronic obstructive pulmonary disease, unspecified; N18.30 Chronic kidney disease, stage 3 unspecified; E78.00 Pure hypercholesterolemia, unspecified; E03.9 Hypothyroidism, unspecified; K21.9 Gastro-esophageal reflux disease without esophagitis; M81.0 Age-related osteoporosis without current pathological fracture; F17.210 Nicotine dependence, cigarettes, uncomplicated; Z66 Do not resuscitate; E86.0 Dehydration; D63.1 Anemia in chronic kidney disease; E83.52 Hypercalcemia; L40.50 Arthropathic psoriasis, unspecified; Z79.51 Long term (current) use of inhaled steroids; Z88.0 Allergy status to penicillin; Z79.899 Other long term (current) drug therapy; Z79.82 Long term (current) use of aspirin; Z90.710 Acquired absence of both cervix and uterus; Z90.49 Acquired absence of other specified parts of digestive tract
CPT/HCPCS: 36415; 36416; 70450; 70551; 71045; 71250; 74230; 76536; 80048; 80053; 81001; 82330; 82340; 82436; 82570; 83970; 84133; 84300; 84484; 85025; 85610; 85730; 87086; 93005; 94640; 96361; 96372; 96374; G0378; J1650; J2272; J7050; J7070; J7620; P9047